=== PATIENT | female | born 1940 | race Caucasian/White ===

== ENCOUNTER → 2017-06-07 | Outpatient (CLI) | payer MEDICARE ==
--- NOTE | 2017-06-07 18:35 | ECHOF ---
Referral Reason:I47.1 supraventricular tacycardia MEASUREMENTS -------- HEIGHT: 152.4 cm WEIGHT: 81.6 kg BP: 166/76 RVIDd: 3.0 cm (< 3.3) IVSd: 1.2 cm (0.6 - 1.1) LVIDd: 4.0 cm (3.9 - 5.3) LVPWd: 1.3 cm (0.6 - 1.1) IVSs: 1.5 cm LVIDs: 2.6 cm LVPWs: 1.6 cm LA Diam: 3.5 cm (2.7 - 3.8) LAESV Index (A-L): 24.86 ml/m Ao Diam: 3.3 cm (2.0 - 3.7) AV Cusp: 2.3 cm (1.5 - 2.6) MV EXCURSION: 14.577 mm (> 18.000) MV EF SLOPE: 29 mm/s (70 - 150) EPSS: 0.5 cm MV E [place]: 0.38 m/s MV DecT: 287 ms MV A [place]: 0.50 m/s MV E/A Ratio: 0.76 AR PHT: 467 ms RAP: 5.00 mmHg RVSP: 26.29 mmHg FINDINGS -------- Sinus rhythm. This was a technically good study. The left ventricular size is normal. There is mild concentric left ventricular hypertrophy. Overall left ventricular systolic function is low-normal with, an EF between 50 - 55 %. The right ventricle is normal in size. Normal LA size by volume 22+/-6 ml/m2. The right atrium is normal in size. There is mild aortic valve sclerosis. There is mild aortic regurgitation. The mitral valve is normal. Mild tricuspid regurgitation present. Right ventricular systolic pressure is normal at < 35 mmHg. Trace/mild (physiologic) pulmonic regurgitation. The aortic root size is normal. IVC Not well visulized. There is no pericardial effusion. CONCLUSIONS -------- 1. Sinus rhythm. 2. The mitral valve is normal. 3. Mild tricuspid regurgitation present. 4. Right ventricular systolic pressure is normal at < 35 mmHg. 5. Trace/mild (physiologic) pulmonic regurgitation. 6. The aortic root size is normal. 7. IVC Not well visulized. 8. There is no pericardial effusion. 9. This was a technically good study. 10. The left ventricular size is normal. 11. There is mild concentric left ventricular hypertrophy. 12. The right ventricle is normal in size. 13. Normal LA size by volume 22+/-6 ml/m2. 14. The right atrium is normal in size. 15. There is mild aortic valve sclerosis. 16. There is mild aortic regurgitation. GOLD MARKER: Darlene Hurtado RDCS
--- NOTE | 2017-06-11 16:54 | HM ---
HOLTER MONITOR REPORT 24-HOUR DCG Patient in her diary had at least 3 episodes when she felt there was some fluttering in her chest. Predominant rhythm appears to be sinus with a heart rate ranging from 64 to 130 beats per minute with an average heart rate of 90 beats per minute. There is evidence of isolated ventricular and supraventricular ectopic beats without any significant runs of SVT, VT or bradyarrhythmia. At that time, patient complained of fluttering sensation in the chest. She was in a normal sinus rhythm with a rate of about 100 beats per minute. Rare PVCs were noted. There was no correlation of any arrhythmia with her perception of fluttering sensation in the chest. This is an unremarkable 24-hour DCG recording. FINAL IMPRESSION: Patient in her diary reported episodes of fluttering in the chest. There was no correlation of any arrhythmia at that time. Prominent rhythm is sinus, with an average heart rate of 90 beats per minute. Isolated PACs and PVCs were noted. No significant tachy- or bradyarrhythmias were detected. MMODL / IJN: [id number] /
== END | disposition home or self-care (01) ==
LOC: RADECHMAIN 10:26
PROVIDERS: ATTEND Family Medicine
DX: I08.2 Rheumatic disorders of both aortic and tricuspid valves (principal)
CPT/HCPCS: 93225; 93226; 93306

== ENCOUNTER 2017-06-12 10:21 | Day surgery (SDC) | payer MEDICARE ==
[2017-06-07 16:32] VITALS: BMI 35.2
[~2017-06-12 10:21] MED LIST: LACTATED RINGERS 1,000 ML IV SCH
[2017-06-12 11:42] VITALS: TEMP 97.4
[2017-06-12] MEDS ORDERED: LIDOCAINE 1% 20 ML VIAL (10MG/ML) FOR IV START INTRADERMA ONE (11:42)
[2017-06-12] MEDS ORDERED: ONDANSETRON 4 MG/2 ML VIAL IVP ONE (11:55)
[2017-06-12] MEDS ORDERED: PROPOFOL 10 MG/ML 20 ML VIAL IV ONE (12:08)
--- NOTE | 2017-06-12 12:35 | P.PCN ---
Date of Procedure: 06/12/17 Procedure(s) Performed: BRIEF HISTORY: Patient is a 77-year-old pleasant white female, scheduled for an elective colonoscopy as a part of evaluation of intermittent rectal bleeding and change in bowel habits. PROCEDURE PERFORMED: Colonoscopy. PREOPERATIVE DIAGNOSIS: Intermittent rectal bleeding and change in bowel habits. IV sedation per Anesthesia. PROCEDURE: After informed consent was obtained, the patient, was brought into the endoscopy unit. IV sedation was administered by Anesthesia under continuous monitoring. Digital rectal examination was normal. Initially the Olympus CF- 160 flexible video colonoscope was then inserted in the rectum, gradually advanced into the cecum without any difficulty. Careful examination was performed as the scope was gradually being withdrawn. Ileocecal valve and the appendiceal orifice were visualized and appeared normal. Prep was excellent. Mucosa of the cecum, ascending colon, transverse colon, descending colon, sigmoid colon, and rectum appeared normal. Moderate left sided diverticulosis seen. Retroflexion was performed in the rectum and small internal hemorrhoids were seen. The patient tolerated the procedure well. IMPRESSION: Normal-appearing colon from rectum to cecum with no evidence of colorectal neoplasia. Small internal hemorrhoids Moderate left-sided diverticulosis. RECOMMENDATIONS: Findings of this examination were discussed with the patient as well her family. She was advised to be a high-fiber diet and take fiber supplements on a regular basis..
[2017-06-12 12:37] VITALS: PULSE 78
[2017-06-12 12:46] VITALS: BP 143/76; RESP 18
== END 2017-06-12 13:08 | disposition home or self-care (01) ==
LOC: ORWHC2ENDO 10:21
PROVIDERS: ATTEND Internal Medicine Gastroenterology
DX: K62.5 Hemorrhage of anus and rectum (principal); K64.8 Other hemorrhoids; K57.30 Diverticulosis of large intestine without perforation or abscess without bleeding; J45.909 Unspecified asthma, uncomplicated; K58.9 Irritable bowel syndrome, unspecified; R19.4 Change in bowel habit; Z88.0 Allergy status to penicillin; Z88.2 Allergy status to sulfonamides; G47.33 Obstructive sleep apnea (adult) (pediatric); Z79.899 Other long term (current) drug therapy
CPT/HCPCS: J2405; J2704; G0121

== ENCOUNTER → 2017-11-06 | Outpatient (CLI) | payer MEDICARE ==
--- NOTE | 2017-11-08 07:15 | MM ---
Reason for exam: screening (asymptomatic). Last mammogram was performed 1 year and 2 months ago. History: Patient is postmenopausal and has history of other cancer at age 70. Family history of breast cancer in maternal cousin at age 50. Took estrogen for 12 years. Physical Findings: A clinical breast exam by your physician is recommended on an annual basis and results should be correlated with mammographic findings. MG 3D Screening Mammo W/Cad Bilateral CC and MLO view(s) were taken. Prior study comparison: September 17, 2016, bilateral MG 3d screening mammo w/cad. September 12, 2015, bilateral MG 3d screening mammo w/cad. There are scattered fibroglandular densities. No significant changes when compared with prior studies. ASSESSMENT: Benign, BI-RAD 2 RECOMMENDATION: Routine screening mammogram of both breasts in 1 year.
== END | disposition home or self-care (01) ==
LOC: RADMAMWWP 13:27
PROVIDERS: ATTEND Family Medicine
DX: Z12.31 Encounter for screening mammogram for malignant neoplasm of breast (principal)
CPT/HCPCS: 77063; 77067

== ENCOUNTER → 2018-05-05 | Outpatient (CLI) | payer MEDICARE ==
--- NOTE | 2018-05-05 17:10 | US ---
EXAMINATION TYPE: US extremity nonvasc complt LT DATE OF EXAM: 05/05/2018 COMPARISON: NONE CLINICAL HISTORY: 78-year-old female R22.9 SWELLING, MASS AND LUMP. Patient states lump area upper ar m around elbow for 2 years. Area is growing per patient and is starting to become uncomfortable if he ld in a certain position (like driving ) for an extended time. Technique: Targeted sonographic examination around the left elbow, distal arm, and proximal forearm a long the patient's site of clinical complaint. FINDINGS: There is asymmetric thickening of the subcutaneous adipose layer along the site of patient's complain t of fullness especially overlying the volar proximal forearm measuring up to 1.5 cm on the left and for comparison purposes, 1.1 cm on the right. No elbow joint effusion or appreciable sonographic abno rmality of the underlying musculature. No discrete mass is identified. IMPRESSION: By ultrasound, only asymmetric thickening of the subcutaneous adipose layer is identified along the s ite of patient's complaint of fullness. No mass or fluid collection is seen. Poorly encapsulated li denia is a differential consideration. If there is continued increase in fullness or the area continu es to be symptomatic, consideration can be given to MRI.
== END | disposition home or self-care (01) ==
LOC: RADUSWWP 12:45
PROVIDERS: ATTEND Family Medicine
DX: R22.32 Localized swelling, mass and lump, left upper limb (principal)

== ENCOUNTER → 2018-07-18 | Outpatient (CLI) | payer MEDICARE ==
--- NOTE | 2018-07-18 09:29 | US ---
EXAMINATION TYPE: US duplex aorta DATE OF EXAM: 07/18/2018 COMPARISON: NONE CLINICAL HISTORY: Z13.9 Encounter for screening. Screening EXAM MEASUREMENTS: Abdominal Aorta: Proximal: 1.8 x 2.1cm Mid: 1.7 x 1.9cm Distal: 1.7 x 1.9cm Bifurcation: RT: 1.2 x 1.0cm LT: 1.2 x 1.0cm Visualized portions show no evidence of AAA at this time. IMPRESSION: The visualized portions of the demonstrate no sonographic evidence of abdominal aortic an eurysm.
== END | disposition home or self-care (01) ==
LOC: RADUSWWP 08:54
PROVIDERS: ATTEND Family Medicine
DX: Z13.9 Encounter for screening, unspecified (principal)
CPT/HCPCS: 93979

== ENCOUNTER → 2018-08-25 | Outpatient (CLI) | payer MEDICARE | END | disposition home or self-care (01) | LOC: LABWHC1 11:10 | PROVIDERS: ATTEND Surgery Vascular Surgery | DX: I82.409 Acute embolism and thrombosis of unspecified deep veins of unspecified lower extremity (principal); Z13.6 Encounter for screening for cardiovascular disorders | CPT/HCPCS: 36415; 83090 ==

== ENCOUNTER → 2018-10-22 | Outpatient (CLI) | payer MEDICARE ==
--- NOTE | 2018-10-22 14:20 | XR ---
Right hip HISTORY: Right hip pain 2 views of the right hip No comparisons Bone mineralization, joint spaces and alignment are maintained. No fracture or dislocation. IMPRESSION: No significant bone abnormality. Consider hip MRI.
== END | disposition home or self-care (01) ==
LOC: RADXRMAIN 12:19
PROVIDERS: ATTEND Midwife
DX: M25.551 Pain in right hip (principal)
CPT/HCPCS: 73502

== ENCOUNTER → 2018-11-28 | Outpatient (CLI) | payer MEDICARE ==
--- NOTE | 2018-12-01 09:33 | MM ---
Reason for exam: screening (asymptomatic). Last mammogram was performed 1 year and 1 month ago. History: Patient is postmenopausal and has history of other cancer at age 70. Family history of breast cancer in maternal cousin at age 50 and breast cancer in cousin at age 55. Took estrogen for 12 years. Physical Findings: A clinical breast exam by your physician is recommended on an annual basis and results should be correlated with mammographic findings. MG 3D Screening Mammo W/Cad Bilateral CC and MLO view(s) were taken. Prior study comparison: November 06, 2017, bilateral MG 3d screening mammo w/cad. September 17, 2016, bilateral MG 3d screening mammo w/cad. There are scattered fibroglandular densities. Benign appearing bilateral calcifications. No suspicious abnormality. No significant changes when compared with prior studies. ASSESSMENT: Benign, BI-RAD 2 RECOMMENDATION: Routine screening mammogram of both breasts in 1 year.
== END ==
LOC: RADMAMWWP 11:00
PROVIDERS: ATTEND Family Medicine
DX: Z12.31 Encounter for screening mammogram for malignant neoplasm of breast (principal)
CPT/HCPCS: 77063; 77067

== ENCOUNTER → 2018-12-02 | Outpatient (CLI) | payer MEDICARE ==
--- NOTE | 2018-12-02 18:10 | BD ---
EXAMINATION TYPE: Axial Bone Density DATE OF EXAM: 12/02/2018 COMPARISON: NONE CLINICAL HISTORY: 78-year-old female postmenopausal screening Height: 59 IN Weight: 172 LBS RISK FACTORS HISTORY OF: Active: YES Diet low in dairy products/other sources of calcium: YES Postmenopausal woman: TOTAL HYST AGE 49 Take estrogen and/or progesterone medications: NOT NOW How long: TOOK AGE 49 - 59 MEDICATIONS: Additional Medications: CALCIUM, SINGULAIR, OMEPRAZOLE, ASPIRIN, INHALER, LEVOCETIRIZINE, LIDRAX, REG YAMILET EXAM MEASUREMENTS: Bone mineral densitometry was performed using the Knovel System. Bone mineral density as measured about the Lumbar spine is: ----- L1-L4(G/cm2): 1.253 T Score Values are as follows: ----- L2: -1.2 ----- L3: 0.7 ----- L4: 2.0 ----- L1-L4: 0.6 Bone mineral density has: Increased 2.0% since study of: 07/23/2016 Bone mineral density about the R hip (g/cm2): 0.887 Bone mineral density about the L hip (g/cm2): 0.882 T Score values are as follows: -----R Neck: -1.1 -----L Neck: -1.1 -----R Total: 0.4 -----L Total: 0.4 Bone mineral density has: Increased 0.2% since study of: 07/23/2016 IMPRESSION: Osteopenia (T Score between -2.5 and -1). There is slightly increased risk of fracture and the patient may be considered for treatment. Re-Screen 2-5 years. NOTE: T-SCORE=SD OF THE YOUNG ADULT MEAN.
== END | disposition home or self-care (01) ==
LOC: RADBDWWP 10:43
PROVIDERS: ATTEND Family Medicine
DX: M85.80 Other specified disorders of bone density and structure, unspecified site (principal); Z78.0 Asymptomatic menopausal state
CPT/HCPCS: 77080

== ENCOUNTER → 2019-06-10 | Outpatient (CLI) | payer MEDICARE | END | disposition home or self-care (01) | LOC: LABWHC1 14:51 | PROVIDERS: ATTEND Surgery Vascular Surgery | DX: Z13.6 Encounter for screening for cardiovascular disorders (principal); E88.89 Other specified metabolic disorders | CPT/HCPCS: 36415; 83090 ==

== ENCOUNTER 2019-09-27 18:41 | Emergency (ER) | payer MEDICARE ==
[2019-09-27] MEDS ORDERED: SODIUM CHLORIDE 0.9% 1,000 ML IV STA (19:02)
[2019-09-27] MEDS ORDERED: SODIUM CHLORIDE 0.9% 500 ML 500 ML IV STA (19:02)
[2019-09-27 19:24] LABS: Basophils % (A) 0 %; Eosinophils # (A) 0.1 k/uL (0-0.7); Eosinophils % (A) 1 %; HCT 40.9 % (34.0-46.0); HGB 13.2 gm/dL (11.4-16.0); Lymphocytes # (A) 2.2 k/uL (1.0-4.8); Lymphocytes % (A) 29 %; MCH 28.8 pg (25.0-35.0); MCHC 32.2 g/dL (31.0-37.0); MCV 89.5 fL (80.0-100.0); Mean Platelet Volume 7.9; Monocytes # (A) 0.5 k/uL (0-1.0); Monocytes % (A) 7 %; Neutrophils # (A) 4.6 k/uL (1.3-7.7); Neutrophils % (A) 59 %; Platelet Count 263 k/uL (150-450); RBC 4.57 m/uL (3.80-5.40); RDW 13.3 % (11.5-15.5); WBC 7.7 k/uL (3.8-10.6)
[2019-09-27 19:28] LABS: ALT 10 U/L (4-34); AST 21 U/L (14-36); African American GFR (CKD) >90 (>60 ml/min/1.73 sqM); Albumin 4.4 g/dL (3.5-5.0); Alkaline Phosphatase 91 U/L (38-126); Anion Gap 8 mmol/L; Blood Urea Nitrogen 12 mg/dL (7-17); Calcium 9.2 mg/dL (8.4-10.2); Carbon Dioxide 28 mmol/L (22-30); Chloride 101 mmol/L (98-107); Creatine Kinase 49 U/L (30-135); Glucose 104 mg/dL (74-99); Non-African American GFR(CKD) 83 (>60 ml/min/1.73 sqM); Potassium 4.2 mmol/L (3.5-5.1); Sodium 137 mmol/L (137-145); Total Bilirubin 0.5 mg/dL (0.2-1.3); Total Protein 6.9 g/dL (6.3-8.2)
[2019-09-27 19:38] LABS: INR 0.9 (<1.2); Partial Thromboplastin Time 22.5 sec (22.0-30.0); Prothrombin Time 9.7 sec (9.0-12.0)
--- NOTE | 2019-09-27 19:40 | ED ---
Chest Pain HPI - General Chief Complaint: Chest Pain Stated Complaint: Chest pain Time Seen by Provider: 09/27/19 19:01 Source: patient, RN notes reviewed, old records reviewed Mode of arrival: ambulatory Limitations: no limitations - History of Present Illness Initial Comments: This is a 79-year-old female DF for evaluation. Patient coming in a symptomatic currently states she has chest pain episode that occurred last night she was able to sleep without difficulty. She was a little bit Alisha for throat event but the chest pain did resolve on its own. Patient supple without significant symptoms and has no symptoms for sure to come to the ER patient not have anemia states that she would like discharge home Complaint: chest pain -: days(s) (yesterday) Onset: during rest Pain Location: substernal Pain Radiation: none Severity: mild Severity scale (1-10): 5 Quality: tightness, heaviness Consistency: now resolved Worsens With: nothing Anginal Symptoms: diaphoresis, dyspnea Treatments Prior to Arrival: none - Related Data Home Medications Medication Instructions Recorded Confirmed Albuterol Sulfate [Proventil Hfa] 1 - 2 puff INHALATION Q6HR PRN 06/07/17 06/07/17 Aspirin [Adult Low Dose Aspirin EC] 81 mg PO DAILY 06/07/17 06/07/17 Budesonide [Pulmicort] 0.5 mg INHALATION BID 06/07/17 06/07/17 CLIDINIUM-chlordiazePOXIDE [Librax] 1 - 2 each PO DIRECTED PRN 06/07/17 06/12/17 Calcium Carbonate [Calcium] 600 mg PO BID 06/07/17 06/07/17 Dicyclomine [Bentyl] 10 mg PO BID PRN 06/07/17 06/12/17 Fiber 2 tab PO BID 06/07/17 06/07/17 L.acidoph,Paracasei, B.lactis 1 each PO DAILY 06/07/17 06/07/17 [Probiotic] Levocetirizine Dihydrochloride 5 mg PO HS 06/07/17 06/07/17 Montelukast [Singulair] 10 mg PO HS 06/07/17 06/07/17 Multivitamin [Multivitamins Adult 1 each PO DAILY 06/07/17 06/07/17 Gummies] Omeprazole [PriLOSEC] 40 mg PO DAILY 06/07/17 06/07/17 Vitamin C/Biotin [Hair, Skin and 1 tab PO DAILY 06/07/17 06/07/17 Nails] Allergies Allergy/AdvReac Type Severity Reaction Status Date / Time ibuprofen [From Motrin] Allergy Unknown Abdominal Verified 09/27/19 18:55 Pain metoprolol Allergy Unknown Hallucinati Verified 09/27/19 18:55 ons Penicillins Allergy Unknown Rash/Hives Verified 09/27/19 18:55 Sulfa (Sulfonamide Allergy Unknown Rash/Hives Verified 09/27/19 18:55 Antibiotics) nebivolol [From Bystolic] AdvReac Unknown Hallucinati Verified 09/27/19 18:55 ons Review of Systems ROS Statement: Those systems with pertinent positive or pertinent negative responses have been documented in the HPI. ROS Other: All systems not noted in ROS Statement are negative. EKG Findings - EKG Comments: EKG Findings:: EKG shows NSR of 82 IA 160 QRS 154 QTc 479 EKG does show significant left bundle-branch block pattern this is significantly changed from EKG most recently a few at this hospital being 6 years ago Past Medical History Past Medical History: Asthma, Hypertension Additional Past Medical History / Comment(s): IBS History of Any Multi-Drug Resistant Organisms: None Reported Past Surgical History: Appendectomy, Cholecystectomy, Heart Catheterization, Hysterectomy Smoking Status: Former smoker Past Alcohol Use History: Daily Past Drug Use History: None Reported General Exam Limitations: no limitations General appearance: alert, in no apparent distress Head exam: Present: atraumatic, normocephalic, normal inspection Eye exam: Present: normal appearance, PERRL, EOMI. Absent: scleral icterus, conjunctival injection, periorbital swelling ENT exam: Present: normal exam, mucous membranes moist Neck exam: Present: normal inspection. Absent: tenderness, meningismus, lymphadenopathy Respiratory exam: Present: normal lung sounds bilaterally. Absent: respiratory distress, wheezes, rales, rhonchi, stridor Cardiovascular Exam: Present: regular rate, normal rhythm, normal heart sounds. Absent: systolic murmur, diastolic murmur, rubs, gallop, clicks GI/Abdominal exam: Present: soft, normal bowel sounds. Absent: distended, tenderness, guarding, rebound, rigid Extremities exam: Present: normal inspection, full ROM, normal capillary refill. Absent: tenderness, pedal edema, joint swelling, calf tenderness Back exam: Present: normal inspection Neurological exam: Present: alert, oriented X3, CN II-XII intact Psychiatric exam: Present: normal affect, normal mood Skin exam: Present: warm, dry, intact, normal color. Absent: rash Course Vital Signs 09/27/19 09/27/19 09/27/19 18:50 19:13 21:11 Temperature 98.1 F Pulse Rate 83 82 Pulse Rate [ 83 Director Ehs ] Respiratory 20 18 Rate Blood Pressure 171/88 168/82 O2 Sat by Pulse 98 98 Oximetry - Reevaluation(s) Reevaluation #1: 09/27/19 21:27 reviewed old EKGs from 7 years ago Reevaluation #2: 09/27/19 21:27 Patient has no chest pain or any symptoms throughout ER stay effusing inpatient admission Chest Pain MDM - MDM 79 female here for evaluation of the chest liquor last night did tell her family about presents to ER today. Reportedly is not significantly elevated, patient is awake alert without complaints of chest pain or shortness of breath patient as needed for discharge home encouraged to return if symptoms return is agreeable for. Patient will start taking aspirin daily Critical Care Time Critical Care Time: Yes Total Critical Care Time: 31 Disposition Clinical Impression: Chest pain Disposition: HOME SELF-CARE Condition: Fair Instructions (If sedation given, give patient instructions): Chest Pain (ED) Is patient prescribed a controlled substance at d/c from ED?: No Referrals: Ko Matthews MD [Primary Care Provider] - 1-2 days
--- NOTE | 2019-09-27 19:42 | XR ---
EXAMINATION TYPE: XR chest 2V DATE OF EXAM: 09/27/2019 COMPARISON: 09/17/2013 HISTORY: Chest pain TECHNIQUE: 2 views FINDINGS: Heart is normal. Lungs are clear. Costophrenic angles are clear. There are no hilar masses. Bony thorax is intact. IMPRESSION: No active cardiopulmonary disease. Normal heart. No adverse change. There is improved ins piration compared to old exam
[2019-09-27 19:52] LABS: Creatine Kinase MB 1.1 ng/mL (0.0-2.4)
[2019-09-27 20:07] LABS: Troponin I 0.045 ng/mL (0.000-0.034)
[2019-09-27] MEDS ORDERED: ASPIRIN 81 MG PO STA (21:27)
[2019-09-27 21:46] VITALS: BP 158/82; PULSE 99; RESP 16; TEMP 98.5
== END 2019-09-27 21:52 | disposition home or self-care (01) ==
LOC: EC 18:41
DX: R07.89 Other chest pain (principal); R61 Generalized hyperhidrosis; R06.00 Dyspnea, unspecified; J45.909 Unspecified asthma, uncomplicated; I10 Essential (primary) hypertension; K58.9 Irritable bowel syndrome, unspecified; Z87.891 Personal history of nicotine dependence; Z88.0 Allergy status to penicillin; Z88.2 Allergy status to sulfonamides; Z88.6 Allergy status to analgesic agent; Z88.8 Allergy status to other drugs, medicaments and biological substances; Z79.51 Long term (current) use of inhaled steroids; Z79.82 Long term (current) use of aspirin; Z79.899 Other long term (current) drug therapy; Z95.818 Presence of other cardiac implants and grafts
CPT/HCPCS: 36415; 71046; 80053; 82550; 82553; 83735; 83880; 84484; 85025; 85610; 85730; 93005; 96360; 96361; 99291

== ENCOUNTER → 2019-10-23 | Outpatient (CLI) | payer MEDICARE ==
[2019-10-23 19:34] LABS: African American GFR (CKD) 80.7 (60.0-200.0); Anion Gap 7.6 mmol/L (4.00-12.00); Calcium 9.4 mg/dL (8.7-10.3); Carbon Dioxide 27.4 mmol/L (21.6-31.8); Non-African American GFR(CKD) 69.6 (60.0-200.0); Potassium 5.6 mmol/L (3.5-5.5)
== END | disposition home or self-care (01) ==
LOC: LABWHC1 13:00
PROVIDERS: ATTEND Internal Medicine Cardiovascular Disease
DX: I10 Essential (primary) hypertension (principal)
CPT/HCPCS: 36415; 80048

== ENCOUNTER → 2020-06-07 | Outpatient (CLI) | payer MEDICARE ==
[2020-06-08 01:54] LABS: African American GFR (CKD) 94.2 (60.0-200.0); Anion Gap 8.6 mmol/L (4.00-12.00); BUN/Creat Ratio 15.71 Ratio (12.00-20.00); Calcium 8.6 mg/dL (8.7-10.3); Carbon Dioxide 24.4 mmol/L (21.6-31.8); Magnesium 1.8 mg/dL (1.5-2.4); Non-African American GFR(CKD) 81.3 (60.0-200.0); Potassium 4.9 mmol/L (3.5-5.5)
== END | disposition home or self-care (01) ==
LOC: LABWHC1 15:55
PROVIDERS: ATTEND Physician Assistant
DX: I50.9 Heart failure, unspecified (principal)
CPT/HCPCS: 36415; 80048; 83735

== ENCOUNTER → 2020-07-07 | Outpatient (CLI) | payer MEDICARE | END | disposition home or self-care (01) | LOC: LABWHC1 12:01 | PROVIDERS: ATTEND Nurse Practitioner Family | DX: Z20.828 Contact with and (suspected) exposure to other viral communicable diseases (principal) | CPT/HCPCS: U0003; C9803 ==

== ENCOUNTER → 2020-08-29 | Outpatient (CLI) | payer MEDICARE ==
[2020-08-30 00:16] LABS: African American GFR (CKD) 80.1 (60.0-200.0); Anion Gap 7.4 mmol/L (4.00-12.00); BUN/Creat Ratio 13.75 Ratio (12.00-20.00); Calcium 9.3 mg/dL (8.7-10.3); Carbon Dioxide 26.6 mmol/L (21.6-31.8); Non-African American GFR(CKD) 69.1 (60.0-200.0); Potassium 5.6 mmol/L (3.5-5.5)
== END | disposition home or self-care (01) ==
LOC: LABWHC1 12:10
PROVIDERS: ATTEND Nurse Practitioner Adult Health
DX: I10 Essential (primary) hypertension (principal); E87.1 Hypo-osmolality and hyponatremia
CPT/HCPCS: 36415; 80048

== ENCOUNTER → 2020-11-11 | Outpatient (CLI) | payer MEDICARE ==
[2020-11-12 00:14] LABS: Anion Gap 9.6 mmol/L (4.00-12.00); Calcium 8.6 mg/dL (8.7-10.3); Carbon Dioxide 26.4 mmol/L (21.6-31.8); Potassium 4.3 mmol/L (3.5-5.5)
[2020-11-12 01:03] LABS: African American GFR (CKD) 61.2 (60.0-200.0); Non-African American GFR(CKD) 52.8 (60.0-200.0)
== END | disposition home or self-care (01) ==
LOC: LABWHC1 10:36
PROVIDERS: ATTEND Nurse Practitioner Adult Health
DX: I10 Essential (primary) hypertension (principal)
CPT/HCPCS: 36415; 80048

== ENCOUNTER → 2021-04-26 | Outpatient (CLI) | payer MEDICARE ==
--- NOTE | 2021-04-26 17:10 | CONS ---
CONSULTATION ADDENDUM: MEDICATIONS: Lasix 40 mg once a day, Imdur 30 mg once a day and Entresto 24 mg-26 mg twice a day, carvedilol 3.125 mg twice a day, aspirin 81 mg once a day, nitroglycerin 0.4 mg as needed for chest pain, omeprazole 40 mg once a day, metoclopramide 5 mg once a day, dicyclomine 3 times a day, 5 mg once a day. Montelukast 10 mg once a day, albuterol inhaler, budesonide, diclofenac twice a day, latanoprost drops 1 drop to each eye once a day. MMJERRELLL / IJN: [id number] /
--- NOTE | 2021-04-27 09:19 | CONS ---
CONSULTATION DATE OF SERVICE: 04/26/2021. 81-year-old lady has been evaluated in Sleep Center for obstructive sleep apnea- hypopnea syndrome. HISTORY OF PRESENT ILLNESS/SLEEP WAKE EVALUATION: Patient has been diagnosed with obstructive sleep apnea 12 years ago in [place]. Since that time, she is on treatment with CPAP every night for the whole night. Presently her CPAP unit is old. It is about again 12 years old and noisy. Patient snores with the CPAP and has episodes of stopped breathing during sleep. Wakes up from sleep 4 times with up to 3 episodes of nocturia. She increased weight for the last 2 years. SLEEP SCHEDULE: Her sleep schedule from 11 p.m. to 7-8 a.m. FALLING ASLEEP: Sometimes she has problems with falling asleep. He has a TV set in bedroom. DURING SLEEP: She usually sleeps on the side position. No history of hypnagogic hallucinations, sleep paralysis or cataplexy. DURING THE DAY/SLEEP WAKE EVALUATION: During the day, patient usually does not take any naps. [place] Sleepiness Scale is 4. PAST MEDICAL HISTORY: Positive for asthma, heart problems, hypertensions, CHF, acid reflux. PAST SURGICAL HISTORY: Appendectomy, hysterectomy, hernia repair, cholecystectomy, venous surgery for the legs. REVIEW OF SYSTEMS: Multiple awakenings from sleep even while using her CPAP equipment. SOCIAL HISTORY: Negative for smoking at the present time. Quit at age of 49. Alcohol consumption occasional wine. FAMILY HISTORY: Cancer, anemia and during the sleep. PHYSICAL EXAMINATION: GENERAL: lady without distress. BP 108/63, HR 61, RR 16, height 4 feet 11 and a half inches. Weight 178.4, temperature 96.2, oxygen saturation at room air 99%. Oropharynx: Extremely low position of soft palate. Mallampati 4. NECK 14-1/2 inches in circumference. Neck: Supple, no JVD. Thyroid is not palpable. LUNGS: Clear to percussion and to auscultation. Good air exchange. No wheezing or rhonchi. HEART: S1, S2 regular. No murmurs, gallops, or rubs. ABDOMEN: Obese. Soft and nontender. Bowel sounds are present. No organomegaly appreciated. EXTREMITIES: 1+ ankle edema. CARD SETTER: Awake, alert, and oriented X3. Cranial nerves 2 to 7 intact. There is no fasciculation or atrophy. noted. No focal deficits observed. IMPRESSION: 1. Obstructive sleep apnea-hypopnea syndrome for about 12 years. We do not have results of her diagnostic polysomnogram. The patient is using CPAP equipment but snores while using the machine and wakes up multiple times while on treatment with CPAP. 2. Obesity, body mass index 35.3. 3. Asthma. 4. Hypertension. 5. History of heart problems. 6. History of congestive heart failure. 7. Acid reflux. 8. Status post hysterectomy. 9. Status post hernia repair. 10.Status post cholecystectomy. 11.Status post appendectomy. 12.Status post surgical treatment of the vein problems of the legs. PLAN: 1. Home sleep apnea test to check patient breathing during sleep. The results of test could be false negative because the patient continues to use her CPAP equipment every night and sometimes when patient has sleep study in the night after using CPAP on previous night it could be false negative. 2. The patient will continue to use CPAP equipment every night for the whole night. 3. Following plan after reviewing results of the home sleep apnea test. 4. Losing weight. 5. No driving if feeling sleepiness. 6. All necessary prescription for CPAP supplies. Thank you very much for referring this patient for consultation. Sincerely, Dayne Stoddard MD, PhD, FAASM Diplomat of [place] [employer] Sleep Medicine Board of [place] [employer] Grades 9 Through 12 Teacher of [place] [facility] [place] MEG / NEDA: [id number] / MTDD
== END | disposition home or self-care (01) ==
LOC: SLEEP 13:30
PROVIDERS: ATTEND Internal Medicine
DX: G47.33 Obstructive sleep apnea (adult) (pediatric) (principal); E66.9 Obesity, unspecified; J45.909 Unspecified asthma, uncomplicated; I10 Essential (primary) hypertension; Z86.79 Personal history of other diseases of the circulatory system; Z98.890 Other specified postprocedural states; Z90.49 Acquired absence of other specified parts of digestive tract; Z90.711 Acquired absence of uterus with remaining cervical stump; Z68.35 Body mass index [BMI] 35.0-35.9, adult
CPT/HCPCS: 99211

== ENCOUNTER → 2021-06-07 | Outpatient (CLI) | payer MEDICARE ==
[2021-06-08 02:28] LABS: African American GFR (CKD) 79.6 (60.0-200.0); Anion Gap 10.9 mmol/L (4.00-12.00); BUN/Creat Ratio 18.75 Ratio (12.00-20.00); Calcium 9.1 mg/dL (8.7-10.3); Carbon Dioxide 26.1 mmol/L (21.6-31.8); Non-African American GFR(CKD) 68.7 (60.0-200.0); Potassium 5.1 mmol/L (3.5-5.5)
== END | disposition home or self-care (01) ==
LOC: LABWHC1 11:24
PROVIDERS: ATTEND Internal Medicine Clinical Cardiac Electrophysiology
DX: I50.9 Heart failure, unspecified (principal); I43 Cardiomyopathy in diseases classified elsewhere
CPT/HCPCS: 36415; 80048

== ENCOUNTER → 2021-08-10 | Outpatient (CLI) | payer MEDICARE ==
--- NOTE | 2021-08-10 15:06 | SFUN ---
SLEEP CENTER FOLLOW UP NOTE DATE OF SERVICE: 08/10/2021 81-year-old lady has been followed in Sleep Center for treatment of obstructive sleep apnea-hypopnea syndrome. Recently, the patient had home sleep apnea test which showed that she has mild obstructive sleep apnea-hypopnea syndrome and I discussed results of the sleep study with patient in detail. The patient was started on auto PAP and today is her first visit after she was treated with this equipment. She feels that she possibly sleeps better with the CPAP. [place] Sleepiness Scale today is 4 which is normal. I checked her CPAP unit. Pressure is in the range between 5 and 15, average pressure 12.2. Usage is every night and 07/29 nights for more than 4 hours. Leak is 20 L/minutes which is borderline. Apnea-hypopnea index increased to 10.2. I reviewed results of the home sleep apnea test and showed really mild obstructive sleep apnea. Apnea/hypopnea index only 5.1, but oxygen level was for long time below or normal. Mostly it was hypopneas which usually does not require high pressure for treatment. CURRENT MEDICATIONS: Carvedilol 3.125 mg twice a day, aspirin 81 mg once a day, omeprazole 40 mg once a day, metoclopramide 5 mg once a day, montelukast 10 mg once a day, albuterol inhaler, budesonide, diclofenac twice a day, latanoprost drops 1 drop to each eye, Imdur 30 mg once a day, Lasix up to 40 mg once a day. PHYSICAL EXAMINATION: GENERAL: Patient in no distress. BP 104/60, HR 60, RR 15, weight 180.4, temperature 96.4, oxygen saturation at room air 97%. Oropharynx: Extremely low position of soft palate, Mallampati 4. NECK: Supple, no JVD. Thyroid is not palpable. LUNGS: Clear to percussion and to auscultation. Good air exchange. No wheezing or rhonchi. HEART: S1, S2 regular. No murmurs, gallops, or rubs. ABDOMEN: Soft and nontender. Bowel sounds are present. No organomegaly appreciated. EXTREMITIES: 1+ ankle edema. METAL TRADES INSTRUCTOR: Awake, alert, and oriented X3. Cranial nerves 2 to 7 intact. There is no fasciculation or atrophy. noted. No focal deficits observed. IMPRESSION: History of obstructive sleep apnea for many years, presently home sleep apnea test done after many years of using CPAP and indicated low only mild obstructive sleep apnea, but that could be false-negative results because patient used her CPAP equipment for the very long period of time. The patient demonstrated good compliance with treatment on the CPAP, benefitting from treatment. PLAN: 1. Patient will continue to use PAP equipment every night for the whole night. 2. Sleep hygiene with regular time in bed for at least 7-1/2 to 8 hours. 3. Precautions related to driving. No driving if feeling sleepiness. 4. I will maintain all necessary prescription for PAP supplies including mask, tube, filters. 5. Watching weight. 6. Follow-up visit in 1 months or earlier if patient has any problems. Because apnea- hypopnea index was increased, I changed the pressure in the machine. Thank you very much for allowing me to participate in management of your patient. Sincerely, Dayne Stoddard MD, PhD, FAASM Diplomat of [place] [employer] Sleep Medicine Board of [place] [employer] [facility] [facility] [place] MMODL / RICHELLEN: [id number] /
== END | disposition home or self-care (01) ==
LOC: SLEEP 13:19
PROVIDERS: ATTEND Internal Medicine
DX: G47.33 Obstructive sleep apnea (adult) (pediatric) (principal)

== ENCOUNTER 2021-09-19 18:17 | Inpatient (IN) | payer MEDICARE ==
[2021-09-19] MEDS ORDERED: SODIUM CHLORIDE 0.9% 1,000 ML IV STA (18:36)
--- NOTE | 2021-09-19 18:41 | ED ---
General Adult HPI - General Chief complaint: Altered Mental Status Stated complaint: altered mental status Time Seen by Provider: 09/19/21 18:21 Source: patient, EMS, RN notes reviewed Mode of arrival: EMS Limitations: altered mental status - History of Present Illness Initial comments: Patient is a pleasant 81-year-old female presenting to the emergency department with concerns for change in mental status. Patient states she feels fine and has no complaints. EMS reported that family felt that patient had some mild changes in mental status. Patient reportedly was oriented 4 normally however now only 3. Patient denies any weakness or confusion. Patient recently was diagnosed with urinary tract infection and placed on antibiotics. - Related Data Home Medications Medication Instructions Recorded Confirmed Levocetirizine Dihydrochloride 5 mg PO HS 06/07/17 09/19/21 Montelukast [Singulair] 10 mg PO HS 06/07/17 09/19/21 Omeprazole [PriLOSEC] 40 mg PO DAILY 06/07/17 09/19/21 Aspirin EC [Ecotrin Low Dose] 81 mg PO DAILY 10/10/19 09/19/21 Budesonide [Pulmicort] 0.5 mg INHALATION RT-BID 10/10/19 09/19/21 Diclofenac Sodium Gel [Voltaren 1 applic TOPICAL BID PRN 10/10/19 09/19/21 Gel] Latanoprost [Xalatan 0.005%] 1 drop BOTH EYES HS 10/10/19 09/19/21 Albuterol Inhaler [Ventolin Hfa 2 puff INHALATION RT-QID PRN 09/19/21 09/19/21 Inhaler] Carvedilol [Coreg] 6.25 mg PO BID 09/19/21 09/19/21 Ciprofloxacin HCl [Cipro] 250 mg PO BID 09/19/21 09/19/21 Dicyclomine [Bentyl] 20 mg PO TID-W/MEALS PRN 09/19/21 09/19/21 Furosemide [Lasix] 40 mg PO DAILY 09/19/21 09/19/21 HYDROcodone/APAP 5-325MG [[place] 1 tab PO BID PRN 09/19/21 09/19/21 5-325] Isosorbide Mononitrate ER [Imdur] 30 mg PO DAILY 09/19/21 09/19/21 Metoclopramide [Reglan] 5 mg PO QID PRN 09/19/21 09/19/21 Phenazopyridine HCl [Uristat Ultra] 99.5 - 199 mg PO TID PRN 09/19/21 09/19/21 Sacubitril/Valsartan [Entresto 24 1 tab PO BID 09/19/21 09/19/21 mg-26 mg Tablet] Previous Rx's Medication Instructions Recorded Nitroglycerin Sl Tabs [Nitrostat] 0.4 mg SUBLINGUAL Q5M PRN #25 tab 10/14/19 Allergies Allergy/AdvReac Type Severity Reaction Status Date / Time ibuprofen [From Motrin] Allergy Unknown Abdominal Verified 09/19/21 20:08 Pain metoprolol Allergy Unknown Hallucinati Verified 09/19/21 20:08 ons Penicillins Allergy Unknown Rash/Hives Verified 09/19/21 20:08 Sulfa (Sulfonamide Allergy Unknown Rash/Hives Verified 09/19/21 20:08 Antibiotics) midazolam [From Versed] Allergy Nausea & Verified 09/19/21 20:08 Vomiting nebivolol [From Bystolic] AdvReac Unknown Hallucinati Verified 09/19/21 20:08 ons fentanyl AdvReac Nausea & Verified 09/19/21 20:08 Vomiting morphine AdvReac Nausea & Verified 09/19/21 20:08 Vomiting Review of Systems ROS Statement: Those systems with pertinent positive or pertinent negative responses have been documented in the HPI. ROS Other: All systems not noted in ROS Statement are negative. Constitutional: Denies: fever Eyes: Denies: eye pain ENT: Denies: ear pain Respiratory: Denies: cough Cardiovascular: Denies: chest pain Endocrine: Denies: fatigue Gastrointestinal: Denies: abdominal pain Genitourinary: Denies: dysuria Musculoskeletal: Denies: back pain Skin: Denies: rash Neurological: Reports: as per HPI. Denies: weakness Past Medical History Past Medical History: Atrial Fibrillation, Asthma, Hypertension Additional Past Medical History / Comment(s): IBS History of Any Multi-Drug Resistant Organisms: None Reported Past Surgical History: Appendectomy, Cholecystectomy, Heart Catheterization, Hernia Repair, Hysterectomy, Tonsillectomy Additional Past Surgical History / Comment(s): varicose vein stripping Past Psychological History: No Psychological Hx Reported Past Alcohol Use History: Daily, Occasional Past Drug Use History: None Reported General Exam Limitations: altered mental status General appearance: alert, in no apparent distress Head exam: Present: normocephalic Eye exam: Present: normal appearance, PERRL, EOMI. Absent: nystagmus ENT exam: Present: normal oropharynx Neck exam: Present: normal inspection. Absent: tenderness, meningismus Respiratory exam: Present: normal lung sounds bilaterally Cardiovascular Exam: Present: regular rate, normal rhythm GI/Abdominal exam: Present: soft. Absent: tenderness Extremities exam: Present: normal inspection. Absent: pedal edema, calf tenderness Neurological exam: Present: alert, CN II-XII intact. Absent: motor sensory deficit Expanded Neurological exam: Present: protecting the airway Patient oriented to: Present: person, place. Absent: time (Patient states the year is 1920.) Speech: Present: fluid speech Cranial nerves: EOM's Intact: Normal Motor strength exam: RUE: 5, LUE: 5, RLE: 5, LLE: 5 Eye Response: (4) open spontaneously Motor Response: (6) obeys commands Verbal Response: (4) confused conversation Psychiatric exam: Present: normal affect, normal mood Skin exam: Present: normal color Course Vital Signs 09/19/21 18:19 Pulse Rate 87 Respiratory 18 Rate Blood Pressure 116/66 O2 Sat by Pulse 90 L Oximetry EKG Findings - EKG Comments: EKG Findings:: Normal sinus rhythm rate 84. IL 154. QRS 160. QT 388. QTC 4. Left axis. Left bundle branch block. Nonspecific ST-T. Medical Decision Making - Medical Decision Making Patient reevaluated and resting comfortably in bed. Patient and family updated on results and plan. Family states patient did receive an injection for her back recently secondary to disc problems. She states patient was mildly confused yesterday, more so today. Patient at this time believes that I was at her house earlier today. Case was discussed with practitioner Sophie, who will admit covering for Dr. Jack, who admits for Dr. Matthews. - Lab Data Result diagrams: 09/19/21 18:44 09/19/21 18:44 Lab Results 09/19/21 09/19/21 09/19/21 Range/Units 18:44 18:44 18:44 WBC 16.2 H (3.8-10.6) k/uL RBC 4.30 (3.80-5.40) m/uL Hgb 12.8 (11.4-16.0) gm/dL Hct 38.4 (34.0-46.0) % MCV 89.2 (80.0-100.0) fL MCH 29.7 (25.0-35.0) pg MCHC 33.3 (31.0-37.0) g/dL RDW 13.0 (11.5-15.5) % Plt Count 238 (150-450) k/uL MPV 8.4 Neutrophils % 86 % Lymphocytes % 7 % Monocytes % 5 % Eosinophils % 1 % Basophils % 0 % Neutrophils # 13.9 H (1.3-7.7) k/uL Lymphocytes # 1.1 (1.0-4.8) k/uL Monocytes # 0.9 (0-1.0) k/uL Eosinophils # 0.1 (0-0.7) k/uL Basophils # 0.0 (0-0.2) k/uL PT 9.8 (9.0-12.0) sec INR 0.9 (<1.2) APTT 22.2 (22.0-30.0) sec Sodium 131 L (137-145) mmol/L Potassium 3.5 (3.5-5.1) mmol/L Chloride 97 L (98-107) mmol/L Carbon Dioxide 25 (22-30) mmol/L Anion Gap 9 mmol/L BUN 19 H (7-17) mg/dL Creatinine 0.98 (0.52-1.04) mg/dL Est GFR (CKD-EPI)AfAm 62 (>60 ml/min/1.73 sqM) Est GFR (CKD-EPI)NonAf 54 (>60 ml/min/1.73 sqM) Glucose 122 H (74-99) mg/dL Calcium 8.6 (8.4-10.2) mg/dL Total Bilirubin 1.1 (0.2-1.3) mg/dL AST 19 (14-36) U/L ALT 14 (4-34) U/L Alkaline Phosphatase 60 (38-126) U/L Troponin I (0.000-0.034) ng/mL Total Protein 6.1 L (6.3-8.2) g/dL Albumin 3.5 (3.5-5.0) g/dL 09/19/21 Range/Units 18:44 WBC (3.8-10.6) k/uL RBC (3.80-5.40) m/uL Hgb (11.4-16.0) gm/dL Hct (34.0-46.0) % MCV (80.0-100.0) fL MCH (25.0-35.0) pg MCHC (31.0-37.0) g/dL RDW (11.5-15.5) % Plt Count (150-450) k/uL MPV Neutrophils % % Lymphocytes % % Monocytes % % Eosinophils % % Basophils % % Neutrophils # (1.3-7.7) k/uL Lymphocytes # (1.0-4.8) k/uL Monocytes # (0-1.0) k/uL Eosinophils # (0-0.7) k/uL Basophils # (0-0.2) k/uL PT (9.0-12.0) sec INR (<1.2) APTT (22.0-30.0) sec Sodium (137-145) mmol/L Potassium (3.5-5.1) mmol/L Chloride (98-107) mmol/L Carbon Dioxide (22-30) mmol/L Anion Gap mmol/L BUN (7-17) mg/dL Creatinine (0.52-1.04) mg/dL Est GFR (CKD-EPI)AfAm (>60 ml/min/1.73 sqM) Est GFR (CKD-EPI)NonAf (>60 ml/min/1.73 sqM) Glucose (74-99) mg/dL Calcium (8.4-10.2) mg/dL Total Bilirubin (0.2-1.3) mg/dL AST (14-36) U/L ALT (4-34) U/L Alkaline Phosphatase (38-126) U/L Troponin I 0.077 H* (0.000-0.034) ng/mL Total Protein (6.3-8.2) g/dL Albumin (3.5-5.0) g/dL - Radiology Data Radiology results: report reviewed (CT brain shows atrophy. No acute intercranial abnormality.), image reviewed (Chest x-ray shows atelectasis) Disposition Clinical Impression: Altered mental status Disposition: ADMITTED IP TO THIS HOSP Is patient prescribed a controlled substance at d/c from ED?: No Referrals: Ko Matthews MD [Primary Care Provider] - 1-2 days Decision Time: 20:48
[2021-09-19 18:48] LABS: Basophils % (A) 0 %; Eosinophils # (A) 0.1 k/uL (0-0.7); Eosinophils % (A) 1 %; HCT 38.4 % (34.0-46.0); HGB 12.8 gm/dL (11.4-16.0); Lymphocytes # (A) 1.1 k/uL (1.0-4.8); Lymphocytes % (A) 7 %; MCH 29.7 pg (25.0-35.0); MCHC 33.3 g/dL (31.0-37.0); MCV 89.2 fL (80.0-100.0); Mean Platelet Volume 8.4; Monocytes # (A) 0.9 k/uL (0-1.0); Monocytes % (A) 5 %; Neutrophils # (A) 13.9 k/uL (1.3-7.7); Neutrophils % (A) 86 %; Platelet Count 238 k/uL (150-450); WBC 16.2 k/uL (3.8-10.6)
[2021-09-19 18:57] LABS: Albumin 3.5 g/dL (3.5-5.0); Calcium 8.6 mg/dL (8.4-10.2); Potassium 3.5 mmol/L (3.5-5.1); Total Bilirubin 1.1 mg/dL (0.2-1.3); Total Protein 6.1 g/dL (6.3-8.2)
[2021-09-19 19:06] LABS: INR 0.9 (<1.2); Partial Thromboplastin Time 22.2 sec (22.0-30.0); Prothrombin Time 9.8 sec (9.0-12.0)
--- NOTE | 2021-09-19 19:48 | CT ---
EXAMINATION TYPE: CT brain wo con DATE OF EXAM: 09/19/2021 COMPARISON: None HISTORY: Altered mental status. CT DLP: 1060.4 mGycm Automated exposure control for dose reduction was used. Images of the brain obtained without contrast. There is cerebral mild cortical atrophy. There is no mass effect nor midline shift. There is no sign of intracranial hemorrhage. Calvarium is intact. IMPRESSION: Mild cerebral atrophy. No acute intracranial abnormality.
--- NOTE | 2021-09-19 19:49 | XR ---
EXAMINATION TYPE: XR chest 2V DATE OF EXAM: 09/19/2021 COMPARISON: 10/10/2019 HISTORY: Altered mental status TECHNIQUE: FINDINGS: There is no heart failure nor confluent pneumonic infiltrate. Costophrenic angles are clear . There is small linear density left lung base. There are chest leads. Bony thorax is intact. IMPRESSION: Subsegmental atelectasis left lung base appears new compared to old exam. Normal heart.
[2021-09-19] MEDS ORDERED: NALOXONE 0.4 MG/ML 1 ML VIAL IV PRN (20:48)
[2021-09-19] MEDS ORDERED: cefTRIAXone IN SWFI 1,000 MG/10 ML SYRINGE IVP STA (20:48)
[2021-09-19] MEDS ORDERED: ASPIRIN 325 MG TAB PO STA (20:49)
[2021-09-19 21:55] LABS: Appearance,Urine Cloudy (Clear); Bacteria,Urine Rare /hpf; Bilirubin,Urine 1+ (Negative); Blood,Urine Moderate (Negative); Color,Urine Dark Brown; Glucose,Urine (UA) Negative (Negative); Hyaline Casts,Urine 16 /lpf (0-2); Ketones,Urine Negative (Negative); Leukocyte Esterase,Urine Moderate (Negative); Mucus,Urine Rare /hpf; Nitrite,Urine Positive (Negative); PH, Urine 5.5 (5.0-8.0); Protein,Urine 2+ (Negative); RBC,Urine 7 /hpf (0-5); Specific Gravity,Urine 1.017 (1.001-1.035); Squamous Epithelial Cell,Urine <1 /hpf (0-4); WBC,Urine 20 /hpf (0-5)
[2021-09-20] MEDS ORDERED: ASPIRIN 325 MG TAB PO SCH (09:00)
[2021-09-20] MEDS ORDERED: ALBUTEROL NEBULIZED 2.5 MG/3 ML INHALATION PRN (12:44)
[2021-09-20] MEDS ORDERED: METOCLOPRAMIDE 5 MG TAB PO PRN (12:44)
[2021-09-20] MEDS ORDERED: DICLOFENAC SODIUM GEL 100 GM TUBE TOPICAL PRN (12:44)
[2021-09-20] MEDS ORDERED: NITROGLYCERIN SL TABS 0.4 MG TAB SUBLINGUAL PRN (12:44)
[2021-09-20] MEDS: ACETAMINOPHEN TAB 325 MG TAB PO PRN ×2 (13:53→22:00)
[2021-09-20] MEDS: carvediloL 6.25 MG TAB PO SCH (13:54)
[2021-09-20] MEDS: SACUBITRIL/VALSARTAN 24 MG-26 MG TABLET PO SCH ×2 (13:54→22:00)
[2021-09-20] MEDS: FUROSEMIDE 40 MG TAB PO SCH (13:54)
--- NOTE | 2021-09-20 13:59 | P.HPIM ---
History of Present Illness 81-year-old pleasant female was brought in because of altered mental status patient is alert oriented 3 when I evaluated the patient patient the had the history of for a back surgery after which patient was started on [place] and after started [place] patient started having confusion. At that time urine analysis was done which was abnormal and patient was believed to have UTI beget which led to her confusion because of which patient was started on ciprofloxacin.. Patient confusion has gotten worse and patient came to Hospital today. Patient was told that her urinary tract infection is not improving with ciprofloxacin. Patient other medications that can cause confusion including Lomotil, levo cetirizine. Patient presently doesn't have any dysuria doesn't have any fever does have leukocytosis, patient received ciprofloxacin urine is definitely abnormal in ER. Patient is bit hyponatremic patient does have history of congestive heart failure EF of around 20-25% patient has ischemic adenopathy patient is an enterostomal for that patient has mildly elevated troponins were all the patient denied any chest pain. REVIEW OF SYSTEMS: CONSTITUTIONAL: No fever, no malaise, no fatigue. HEENT: No recent visual problems or hearing problems. Denied any sore throat. CARDIOVASCULAR: No chest pain, orthopnea, PND, no palpitations, no syncope. PULMONARY: No shortness of breath, no cough, no hemoptysis. GASTROINTESTINAL: No diarrhea, no nausea, no vomiting, no abdominal pain. NEUROLOGICAL: No headaches, no weakness, no numbness. HEMATOLOGICAL: Denies any bleeding or petechiae. GENITOURINARY: Denies any burning micturition, frequency, or urgency. MUSCULOSKELETAL/RHEUMATOLOGICAL: Denies any joint pain, swelling, or any muscle pain. ENDOCRINE: Denies any polyuria or polydipsia. The rest of the 14-point review of systems is negative. PHYSICAL EXAMINATION: GENERAL: The patient is alert and oriented x3, not in any acute distress. Well developed, well nourished. HEENT: Pupils are round and equally reacting to light. EOMI. No scleral icterus. No conjunctival pallor. Normocephalic, atraumatic. No pharyngeal erythema. No thyromegaly. CARDIOVASCULAR: S1 and S2 present. No murmurs, rubs, or gallops. PULMONARY: Chest is clear to auscultation, no wheezing or crackles. ABDOMEN: Soft, nontender, nondistended, normoactive bowel sounds. No palpable organomegaly. MUSCULOSKELETAL: No joint swelling or deformity. EXTREMITIES: No cyanosis, clubbing, or pedal edema. NEUROLOGICAL: Gross neurological examination did not reveal any focal deficits. Does have generalized weakness SKIN: No rashes. Assessment and plan -Altered mental status toxic encephalopathy and believed mostly because of the medications were particularly [place] because of the temporal association with contribution from other medications including anticholinergics that is cetirizine. These medications will be held patient is already feeling better. Patient will the not be started on antibiotics we'll repeat the CBC tomorrow mo nitor her overnight. Patient probably has asymptomatic bacteriuria. Her confusion has worsened because of for ciprofloxacin. Family as is at bedside which helps with the sundowners. -Hyponatremia probably mild hypervolumia secondary to heart failure we'll obtain a BNP patient will restart back on enterostomal and Lasix -Can start failure chronic systolic dysfunction with mild acute exacerbation -Mild troponin elevation secondary to CHF most probably cardiology will be consulted troponins are not going up. 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 History of Any Multi-Drug Resistant Organisms: None Reported Past Surgical History: Appendectomy, Cholecystectomy, Heart Catheterization, Hernia Repair, Hysterectomy, Tonsillectomy Additional Past Surgical History / Comment(s): varicose vein stripping Past Anesthesia/Blood Transfusion Reactions: Postoperative Nausea & Vomiting (PONV) Past Psychological History: No Psychological Hx Reported Smoking Status: Former smoker Past Alcohol Use History: Daily Additional Past Alcohol Use History / Comment(s): Pt drinks 1-2 glasses of wine daily. Past Drug Use History: None Reported - Past Family History Mother Family Medical History: Congestive Heart Failure (CHF) Father Additional Family Medical History / Comment(s): of aneurysm. Medications and Allergies Home Medications Medication Instructions Recorded Confirmed Type Levocetirizine Dihydrochloride 5 mg PO HS 06/07/17 09/19/21 History Montelukast [Singulair] 10 mg PO HS 06/07/17 09/19/21 History Omeprazole [PriLOSEC] 40 mg PO DAILY 06/07/17 09/19/21 History Aspirin EC [Ecotrin Low Dose] 81 mg PO DAILY 10/10/19 09/19/21 History Budesonide [Pulmicort] 0.5 mg INHALATION RT-BID 10/10/19 09/19/21 History Diclofenac Sodium Gel [Voltaren 1 applic TOPICAL BID PRN 10/10/19 09/19/21 History Gel] Latanoprost [Xalatan 0.005%] 1 drop BOTH EYES HS 10/10/19 09/19/21 History Nitroglycerin Sl Tabs [Nitrostat] 0.4 mg SUBLINGUAL Q5M PRN #25 tab 10/14/19 09/19/21 Rx Albuterol Inhaler [Ventolin Hfa 2 puff INHALATION RT-QID PRN 09/19/21 09/19/21 History Inhaler] Carvedilol [Coreg] 6.25 mg PO BID 09/19/21 09/19/21 History Ciprofloxacin HCl [Cipro] 250 mg PO BID 09/19/21 09/19/21 History Dicyclomine [Bentyl] 20 mg PO TID-W/MEALS PRN 09/19/21 09/19/21 History Furosemide [Lasix] 40 mg PO DAILY 09/19/21 09/19/21 History HYDROcodone/APAP 5-325MG [[place] 1 tab PO BID PRN 09/19/21 09/19/21 History 5-325] Isosorbide Mononitrate ER [Imdur] 30 mg PO DAILY 09/19/21 09/19/21 History Metoclopramide [Reglan] 5 mg PO QID PRN 09/19/21 09/19/21 History Phenazopyridine HCl [Uristat Ultra] 99.5 - 199 mg PO TID PRN 09/19/21 09/19/21 History Sacubitril/Valsartan [Entresto 24 1 tab PO BID 09/19/21 09/19/21 History mg-26 mg Tablet] Allergies Allergy/AdvReac Type Severity Reaction Status Date / Time ibuprofen [From Motrin] Allergy Unknown Abdominal Verified 09/19/21 20:08 Pain metoprolol Allergy Unknown Hallucinati Verified 09/19/21 20:08 ons Penicillins Allergy Unknown Rash/Hives Verified 09/19/21 20:08 Sulfa (Sulfonamide Allergy Unknown Rash/Hives Verified 09/19/21 20:08 Antibiotics) midazolam [From Versed] Allergy Nausea & Verified 09/19/21 20:08 Vomiting nebivolol [From Bystolic] AdvReac Unknown Hallucinati Verified 09/19/21 20:08 ons fentanyl AdvReac Nausea & Verified 09/19/21 20:08 Vomiting morphine AdvReac Nausea & Verified 09/19/21 20:08 Vomiting Physical Exam Vitals: Vital Signs Temp Pulse Pulse Resp BP BP Pulse Ox 09/20/21 11:09 98.9 F 72 18 124/57 94 L 09/20/21 08:00 99.2 F 71 16 109/53 90 L 09/20/21 03:16 99.0 F 76 20 118/58 92 L 09/20/21 01:49 82 09/20/21 00:15 99.3 F 82 20 109/55 91 L 09/19/21 22:16 82 16 116/51 96 09/19/21 22:15 98.9 F 09/19/21 18:19 87 18 116/66 90 L Intake and Output 09/19/21 09/20/21 09/20/21 22:59 06:59 14:59 Intake Total 240 Output Total 300 Balance -300 240 Intake: Oral 240 Output: Urine 300 Straight 300 Other: Voiding Method Toilet # Voids 1 1 Weight 79.832 kg 79.832 kg Results CBC & Chem 7: 09/19/21 18:44 09/19/21 18:44 Labs: Abnormal Lab Results - Last 24 Hours (Table) 09/19/21 09/19/21 09/19/21 Range/Units 18:44 18:44 18:44 WBC 16.2 H (3.8-10.6) k/uL Neutrophils # 13.9 H (1.3-7.7) k/uL Sodium 131 L (137-145) mmol/L Chloride 97 L (98-107) mmol/L BUN 19 H (7-17) mg/dL Glucose 122 H (74-99) mg/dL Troponin I 0.077 H* (0.000-0.034) ng/mL Total Protein 6.1 L (6.3-8.2) g/dL Urine Appearance (Clear) Urine Protein (Negative) Urine Blood (Negative) Urine Nitrite (Negative) Urine Bilirubin (Negative) Ur Leukocyte Esterase (Negative) Urine RBC (0-5) /hpf Urine WBC (0-5) /hpf Urine WBC Clumps (None) /hpf Urine Bacteria (None) /hpf Hyaline Casts (0-2) /lpf Urine Mucus (None) /hpf 09/19/21 09/19/21 09/20/21 Range/Units 21:17 21:37 00:20 WBC (3.8-10.6) k/uL Neutrophils # (1.3-7.7) k/uL Sodium (137-145) mmol/L Chloride (98-107) mmol/L BUN (7-17) mg/dL Glucose (74-99) mg/dL Troponin I 0.080 H* 0.089 H* (0.000-0.034) ng/mL Total Protein (6.3-8.2) g/dL Urine Appearance Cloudy H (Clear) Urine Protein 2+ H (Negative) Urine Blood Moderate H (Negative) Urine Nitrite Positive H (Negative) Urine Bilirubin 1+ H (Negative) Ur Leukocyte Esterase Moderate H (Negative) Urine RBC 7 H (0-5) /hpf Urine WBC 20 H (0-5) /hpf Urine WBC Clumps Rare H (None) /hpf Urine Bacteria Rare H (None) /hpf Hyaline Casts 16 H (0-2) /lpf Urine Mucus Rare H (None) /hpf Microbiology - Last 24 Hours (Table) 09/19/21 21:17 Urine Culture - Preliminary Urine,Voided Thrombosis Risk Factor Assmnt - Choose All That Apply Any of the Below Risk Factors Present?: Yes Each Factor Represents 1 point: Varicose veins Other Risk Factors: Yes Each Risk Factor Represents 3 Points: Age 75 years or older Other congenital or acquired thrombophilia - If yes, enter type in comment: No Thrombosis Risk Factor Assessment Total Risk Factor Score: 4 Thrombosis Risk Factor Assessment Level: Moderate Risk
[2021-09-20] MEDS: BUDESONIDE 0.5 MG/2 ML NEBU INHALATION SCH (21:06)
[2021-09-20] MEDS: MONTELUKAST 10 MG TAB PO SCH (22:00)
[2021-09-20] MEDS: HEPARIN SODIUM,PORCINE/PF 5,000 UNIT/0.5 ML SYRINGE SQ SCH (22:00)
[2021-09-20] MEDS: LATANOPROST 0.005% OPHTH DROPS 2.5 ML BTL BOTH EYES SCH (22:01)
[2021-09-21] MEDS: ACETAMINOPHEN TAB 325 MG TAB PO PRN ×3 (05:21→23:03)
[2021-09-21] MEDS: carvediloL 6.25 MG TAB PO SCH ×2 (06:45→16:52)
[2021-09-21 08:20] LABS: HCT 33.1 % (34.0-46.0); HGB 11.2 gm/dL (11.4-16.0); MCH 30.3 pg (25.0-35.0); MCHC 33.8 g/dL (31.0-37.0); MCV 89.8 fL (80.0-100.0); Mean Platelet Volume 8.6; Platelet Count 222 k/uL (150-450); RBC 3.68 m/uL (3.80-5.40); WBC 14.4 k/uL (3.8-10.6)
[2021-09-21] MEDS: HEPARIN SODIUM,PORCINE/PF 5,000 UNIT/0.5 ML SYRINGE SQ SCH ×2 (08:24→21:37)
[2021-09-21] MEDS: FUROSEMIDE 40 MG TAB PO SCH (08:24)
[2021-09-21] MEDS: SACUBITRIL/VALSARTAN 24 MG-26 MG TABLET PO SCH ×2 (08:24→21:38)
[2021-09-21] MEDS: PANTOPRAZOLE 40 MG TABLET PO SCH (08:24)
[2021-09-21] MEDS: ASPIRIN 81 MG PO SCH (08:24)
[2021-09-21 08:37] LABS: Calcium 8.5 mg/dL (8.4-10.2); Magnesium 1.9 mg/dL (1.6-2.3); Potassium 3.9 mmol/L (3.5-5.1)
[2021-09-21] MEDS ORDERED: ISOSORBIDE MONONITRATE ER 30 MG TAB.ER.24H PO SCH (09:00)
[2021-09-21] MEDS: BUDESONIDE 0.5 MG/2 ML NEBU INHALATION SCH ×2 (10:01→21:53)
--- NOTE | 2021-09-21 10:27 | P.CRDCN ---
History of Present Illness History of present illness: HISTORY OF PRESENTING ILLNESS This is a pleasant 81-year-old female past medical history significant for nonischemic cardiomyopathy, chronic systolic heart failure, hypertension, and left bundle branch block, recent herniated disc 3 weeks ago s/p steroid injections 1 week ago. She follows in the office with Dr. Arthur. We have been asked to see in consultation for elevated troponin. Patient presents to the emergency department with alerted mental status. Family reported that patient ap peared confused. She had a herniated disc 3 weeks ago, she was given a steroid injection about 1 week ago, supposedly patient was recently started on [place] and started to have confusion. At that time, she was also have burning with urination and confusion she diagnosed with a UTI, she started on Ciprofloxacin with no improvement. Her confusion, apparently had progressively gotten worse per family and she was brought to the emergency department for further evaluation. Patient denied any chest pain, shortness of breath, lightheadedness, dizziness, syncope or near syncope. Troponins were drawn in the ER which were 0.07, 0.08, 0.08. DIAGNOSTICS -EKG reveals sinus rhythm, heart rate 84, left bundle branch block, poor R wave progression, no significant ST or T-wave abnormalities. Prior EKG with similar findings -Last Cardiac Catheterization 10/13/2019- normal coronary arteries -Most recent echocardiogram 02/24/2020 revealed an EF of 43%, grade 3 diastolic dysfunction, moderate aortic regurgitation, mild mitral regurgitation, mild tricuspid regurgitation -24 hour holter monitor 09/2019- sinus mechanism HR range 53-95. -Most recent stress test 11/10/2020 Dobutamine- Inconclusive, due to patient not obtaining target heart rate. partially reversible ischemia in the mid anterior wall which was consistent with left bundle branch pattern. medical therapy advised at that time. -Telemetry tracings indicate sinus mechanism HR 60s-70s -Chest xray subsegmental atelectasis left lung base -CT brain with no acute intracranial abnormality Laboratory reviewed, WBC 16.2, hemoglobin 12.8, platelets 238, sodium 131, potassium 3.5, BUN 19, serum creatinine 0.9, proBNP 2140, troponin 0.07, 0.08, 0.08 Current home medications include Imdur 30 mg daily, Lasix 40 mg daily, and dressed to 24 mg to 26 mg twice a day, carvedilol 6.25 mg twice a day, aspirin 81 mg daily. REVIEW OF SYSTEMS At the time of my exam: CONSTITUTIONAL: Denies fever or chills. CARDIOVASCULAR: Denies chest pain, shortness of breath, orthopnea, PND or palpitations. RESPIRATORY: Denies cough. GASTROINTESTINAL: Denies abdominal pain, diarrhea, constipation, nausea or vomiting. MUSCULOSKELETAL: Denies myalgias. NEUROLOGIC: +confusion Denies numbness, tingling, headache or weakness. ENDOCRINE: Denies fatigue, weight change, polydipsia or polyurina. GENITOURINARY: Denies burning, hematuria or urgency with micturation. HEMATOLOGIC: Denies history of anemia or bleeding. PHYSICAL EXAMINATION Blood pressure 124/57, heart rate 72, afebrile, oxygen saturation is greater than 92% on 2 L nasal cannula CONSTITUTIONAL: No apparent distress. HEENT: Head is normocephalic. Pupils are equal, round. Sclerae anicteric. Mucous membranes of the mouth are moist. No JVD. No carotid bruit. CHEST EXAMINATION: Lungs are diminished bilaterally to auscultation. No chest wall tenderness is noted on palpation or with deep breathing. HEART EXAMINATION: Regular rate and rhythm. S1, S2 heard. systolic and diastolic murmur noted. ABDOMEN: Soft, nontender. Positive bowel sounds. EXTREMITIES: 2+ peripheral pulses, no lower extremity edema and no calf tenderness. SKIN: warm, ddry NEUROLOGIC EXAMINATION: Patient is awake, alert and oriented x1-2 ASSESSMENT Elevated troponin, likely due to recent infection, not consistent with acute coronary syndrome. Patient without chest pain or evidence of ischemia on EKG. Urinary tract infection Recent herniated disc s/p injection 1 week ago Altered mental status Hyponatremia Nonischemic cardiomyopathy Chronic systolic heart failure History of hypertension PLAN Obtain 2D echocardiogram and doppler study to assess cardiac structure and function. If echocardiogram with no acute changes, no further workup from cardiology perspetive. Continue all home cardiac medications Follow up with Dr. Arthur outpatient Thank you kindly for this consultation. Nurse Practitioner note has been reviewed, I agree with a documented findings and plan of care. Patient was seen and examined. Past Medical History Past Medical History: Atrial Fibrillation, Asthma, Heart Failure, GERD/Reflux, Hypertension, Sleep Apnea/CPAP/BIPAP Additional Past Medical History / Comment(s): IBS, autoimmune disease (unsure of disease, needed lung biopsy to diagnose and biopsy was not done), uses CPAP at home. History of Any Multi-Drug Resistant Organisms: None Reported Past Surgical History: Appendectomy, Cholecystectomy, Heart Catheterization, Hernia Repair, Hysterectomy, Tonsillectomy Additional Past Surgical History / Comment(s): varicose vein stripping Past Anesthesia/Blood Transfusion Reactions: Postoperative Nausea & Vomiting (PONV) Past Psychological History: No Psychological Hx Reported Smoking Status: Former smoker Past Alcohol Use History: Daily Additional Past Alcohol Use History / Comment(s): Pt drinks 1-2 glasses of wine daily. Past Drug Use History: None Reported - Past Family History Mother Family Medical History: Congestive Heart Failure (CHF) Father Additional Family Medical History / Comment(s): of aneurysm. Medications and Allergies Home Medications Medication Instructions Recorded Confirmed Type Levocetirizine Dihydrochloride 5 mg PO HS 06/07/17 09/19/21 History Montelukast [Singulair] 10 mg PO HS 06/07/17 09/19/21 History Omeprazole [PriLOSEC] 40 mg PO DAILY 06/07/17 09/19/21 History Aspirin EC [Ecotrin Low Dose] 81 mg PO DAILY 10/10/19 09/19/21 History Budesonide [Pulmicort] 0.5 mg INHALATION RT-BID 10/10/19 09/19/21 History Diclofenac Sodium Gel [Voltaren 1 applic TOPICAL BID PRN 10/10/19 09/19/21 History Gel] Latanoprost [Xalatan 0.005%] 1 drop BOTH EYES HS 10/10/19 09/19/21 History Nitroglycerin Sl Tabs [Nitrostat] 0.4 mg SUBLINGUAL Q5M PRN #25 tab 10/14/19 09/19/21 Rx Albuterol Inhaler [Ventolin Hfa 2 puff INHALATION RT-QID PRN 09/19/21 09/19/21 History Inhaler] Carvedilol [Coreg] 6.25 mg PO BID 09/19/21 09/19/21 History Ciprofloxacin HCl [Cipro] 250 mg PO BID 09/19/21 09/19/21 History Dicyclomine [Bentyl] 20 mg PO TID-W/MEALS PRN 09/19/21 09/19/21 History Furosemide [Lasix] 40 mg PO DAILY 09/19/21 09/19/21 History HYDROcodone/APAP 5-325MG [Lena 1 tab PO BID PRN 09/19/21 09/19/21 History 5-325] Isosorbide Mononitrate ER [Imdur] 30 mg PO DAILY 09/19/21 09/19/21 History Metoclopramide [Reglan] 5 mg PO QID PRN 09/19/21 09/19/21 History Phenazopyridine HCl [Uristat Ultra] 99.5 - 199 mg PO TID PRN 09/19/21 09/19/21 History Sacubitril/Valsartan [Entresto 24 1 tab PO BID 09/19/21 09/19/21 History mg-26 mg Tablet] Allergies Allergy/AdvReac Type Severity Reaction Status Date / Time ibuprofen [From Motrin] Allergy Unknown Abdominal Verified 09/19/21 20:08 Pain metoprolol Allergy Unknown Hallucinati Verified 09/19/21 20:08 ons Penicillins Allergy Unknown Rash/Hives Verified 09/19/21 20:08 Sulfa (Sulfonamide Allergy Unknown Rash/Hives Verified 09/19/21 20:08 Antibiotics) midazolam [From Versed] Allergy Nausea & Verified 09/19/21 20:08 Vomiting nebivolol [From Bystolic] AdvReac Unknown Hallucinati Verified 09/19/21 20:08 ons fentanyl AdvReac Nausea & Verified 09/19/21 20:08 Vomiting morphine AdvReac Nausea & Verified 09/19/21 20:08 Vomiting Physical Exam Vitals: Vital Signs Temp Pulse Pulse Resp BP BP Pulse Ox 09/20/21 11:09 98.9 F 72 18 124/57 94 L 09/20/21 08:00 99.2 F 71 16 109/53 90 L 09/20/21 03:16 99.0 F 76 20 118/58 92 L 09/20/21 01:49 82 09/20/21 00:15 99.3 F 82 20 109/55 91 L 09/19/21 22:16 82 16 116/51 96 09/19/21 22:15 98.9 F 09/19/21 18:19 87 18 116/66 90 L Intake and Output 09/19/21 09/20/21 09/20/21 22:59 06:59 14:59 Intake Total 240 Output Total 300 Balance -300 240 Intake: Oral 240 Output: Urine 300 Straight 300 Other: Voiding Method Toilet # Voids 1 1 Weight 79.832 kg 79.832 kg Results 09/21/21 07:24 09/21/21 07:24 Cardiac Enzymes 09/19/21 09/19/21 09/19/21 Range/Units 18:44 18:44 21:37 AST 19 (14-36) U/L Troponin I 0.077 H* 0.080 H* (0.000-0.034) ng/mL 09/20/21 Range/Units 00:20 AST (14-36) U/L Troponin I 0.089 H* (0.000-0.034) ng/mL Coagulation 09/19/21 Range/Units 18:44 PT 9.8 (9.0-12.0) sec APTT 22.2 (22.0-30.0) sec CBC 09/19/21 Range/Units 18:44 WBC 16.2 H (3.8-10.6) k/uL RBC 4.30 (3.80-5.40) m/uL Hgb 12.8 (11.4-16.0) gm/dL Hct 38.4 (34.0-46.0) % Plt Count 238 (150-450) k/uL Comprehensive Metabolic Panel 09/19/21 Range/Units 18:44 Sodium 131 L (137-145) mmol/L Potassium 3.5 (3.5-5.1) mmol/L Chloride 97 L (98-107) mmol/L Carbon Dioxide 25 (22-30) mmol/L BUN 19 H (7-17) mg/dL Creatinine 0.98 (0.52-1.04) mg/dL Glucose 122 H (74-99) mg/dL Calcium 8.6 (8.4-10.2) mg/dL AST 19 (14-36) U/L ALT 14 (4-34) U/L Alkaline Phosphatase 60 (38-126) U/L Total Protein 6.1 L (6.3-8.2) g/dL Albumin 3.5 (3.5-5.0) g/dL Current Medications Generic Name Dose Route Start Last Admin Trade Name Freq PRN Reason Stop Dose Admin Acetaminophen 650 mg 09/19/21 20:48 09/20/21 13:53 Acetaminophen Tab 325 Mg Tab PO 650 mg Q6H PRN Administration Mild Pain or Fever > 100.5 Albuterol Sulfate 2.5 mg 09/20/21 12:44 Albuterol Nebulized 2.5 Mg/3 Ml INHALATION RT-QID PRN Shortness Of Breath Aspirin 81 mg 09/21/21 09:00 Aspirin 81 Mg PO DAILY [facility] Budesonide 0.5 mg 09/20/21 20:00 Budesonide 0.5 Mg/2 Ml Nebu INHALATION RT-BID VIOLETTA Carvedilol 6.25 mg 09/20/21 17:30 09/20/21 13:54 Carvedilol 6.25 Mg Tab PO 6.25 mg BID-W/MEALS VIOLETTA Administration Diclofenac Sodium 2 gm 09/20/21 12:44 Diclofenac Sodium Gel 100 Gm Tube TOPICAL BID PRN pain in feet Protocol Furosemide 40 mg 09/20/21 13:00 09/20/21 13:54 Furosemide 40 Mg Tab PO 40 mg DAILY VIOLETTA Administration Heparin Sodium (Porcine) 5,000 unit 09/20/21 21:00 Heparin Sodium,Porcine/Pf 5,000 Unit/0.5 Ml Syringe SQ Q12HR [facility] Isosorbide Mononitrate 30 mg 09/21/21 09:00 Isosorbide Mononitrate Er 30 Mg Tab.Er.24h PO DAILY [facility] Latanoprost 1 drops 09/20/21 21:00 Latanoprost 0.005% Ophth Drops 2.5 Ml Btl BOTH EYES HS [facility] Metoclopramide HCl 5 mg 09/20/21 12:44 Metoclopramide 5 Mg Tab PO QID PRN Nausea Montelukast Sodium 10 mg 09/20/21 21:00 Montelukast 10 Mg Tab PO HS VIOLETTA Naloxone HCl 0.2 mg 09/19/21 20:48 Naloxone 0.4 Mg/Ml 1 Ml Vial IV Q2M PRN Opioid Reversal Nitroglycerin 0.4 mg 09/20/21 12:44 Nitroglycerin Sl Tabs 0.4 Mg Tab SUBLINGUAL Q5M PRN Chest Pain Pantoprazole Sodium 40 mg 09/21/21 09:00 Pantoprazole 40 Mg Tablet PO DAILY [facility] Sacubitril/Valsartan 1 each 09/20/21 21:00 09/20/21 13:54 Sacubitril/Valsartan 24 Mg-26 Mg Tablet PO 1 each BID VIOLETTA Administration Intake and Output 09/19/21 09/20/21 09/20/21 22:59 06:59 14:59 Intake Total 240 Output Total 300 Balance -300 240 Intake: Oral 240 Output: Urine 300 Straight 300 Other: Voiding Method Toilet # Voids 1 1 Weight 79.832 kg 79.832 kg 09/19/21 18:44 09/19/21 18:44
[2021-09-21] MEDS: ISOSORBIDE MONONITRATE ER 30 MG TAB.ER.24H PO SCH (11:25)
--- NOTE | 2021-09-21 14:40 | ECHOF ---
Referral Reason:elevated troponin MEASUREMENTS -------- HEIGHT: 149.9 cm WEIGHT: 79.4 kg BP: 142/62 RVIDd: 3.5 cm (< 3.3) IVSd: 1.2 cm (0.6 - 1.1) LVIDd: 5.1 cm (3.9 - 5.3) LVPWd: 1.4 cm (0.6 - 1.1) IVSs: 1.3 cm LVIDs: 4.3 cm LVPWs: 1.8 cm LAESV Index (A-L): 39.60 ml/m Ao Diam: 2.7 cm (2.0 - 3.7) AV Cusp: 1.6 cm (1.5 - 2.6) LA Diam: 3.8 cm (2.7 - 3.8) MV EXCURSION: 16.144 mm (> 18.000) MV EF SLOPE: 58 mm/s (70 - 150) EPSS: 0.8 cm MV E [place]: 0.49 m/s MV DecT: 207 ms MV A [place]: 0.87 m/s MV E/A Ratio: 0.56 AR PHT: 438 ms RAP: 5.00 mmHg RVSP: 43.45 mmHg FINDINGS -------- This was a technically difficult study with suboptimal apical views. The left ventricular size is normal. There is mild concentric left ventricular hypertrophy. Overa ll left ventricular systolic function is severely impaired with, an EF between 25 - 30 %. The right ventricle is mildly enlarged. LA is moderately dilated 34-39 ml/m2 The right atrial size is normal. 3.0mg of Lumason was utilized for enhancement of images Interatrial and interventricular septum intact. There is mild aortic valve sclerosis. There is [id number] aortic regurgitation. There is no evidence of aortic stenosis. Moderate mitral regurgitation is present. Moderate tricuspid regurgitation present. There is mild to moderate pulmonary hypertension. The r ight ventricular systolic pressure, as measured by Doppler, is 43.45mmHg. There is no pulmonic regurgitation present. The aortic root size is normal. IVC Not well visuAlized. There is no pericardial effusion. CONCLUSIONS -------- 1. The left ventricular size is normal. 2. There is mild concentric left ventricular hypertrophy. 3. Overall left ventricular systolic function is severely impaired with, an EF between 25 - 30 %. 4. The right ventricle is mildly enlarged. 5. LA is moderately dilated 34-39 ml/m2 6. There is mild aortic valve sclerosis. 7. There is ghpn-ao-[id number] aortic regurgitation. 8. Moderate mitral regurgitation is present. 9. Moderate tricuspid regurgitation present. 10. There is mild to moderate pulmonary hypertension. 11. The right ventricular systolic pressure, as measured by Doppler, is 43.45mmHg. [employer] SPECIALIST: Lorin Aviles RDCS
[2021-09-21] MEDS: PHENAZOPYRIDINE 100 MG TAB PO SCH ×2 (16:51→21:38)
[2021-09-21] MEDS: MONTELUKAST 10 MG TAB PO SCH (21:37)
[2021-09-21] MEDS: LATANOPROST 0.005% OPHTH DROPS 2.5 ML BTL BOTH EYES SCH (21:38)
[2021-09-22] MEDS: ACETAMINOPHEN TAB 325 MG TAB PO PRN ×2 (04:34→15:32)
[2021-09-22] MEDS: carvediloL 6.25 MG TAB PO SCH (06:53)
[2021-09-22] MEDS: SACUBITRIL/VALSARTAN 24 MG-26 MG TABLET PO SCH (08:14)
[2021-09-22] MEDS: ASPIRIN 81 MG PO SCH (08:14)
[2021-09-22] MEDS: PHENAZOPYRIDINE 100 MG TAB PO SCH ×2 (08:14→15:31)
[2021-09-22] MEDS: PANTOPRAZOLE 40 MG TABLET PO SCH (08:14)
[2021-09-22] MEDS: HEPARIN SODIUM,PORCINE/PF 5,000 UNIT/0.5 ML SYRINGE SQ SCH (08:15)
[2021-09-22] MEDS: BUDESONIDE 0.5 MG/2 ML NEBU INHALATION SCH (09:24)
[2021-09-22 12:16] VITALS: TEMP 98.2
[2021-09-22] MEDS: FUROSEMIDE 40 MG TAB PO SCH (12:17)
[2021-09-22] MEDS: ISOSORBIDE MONONITRATE ER 30 MG TAB.ER.24H PO SCH (12:17)
--- NOTE | 2021-09-22 14:26 | P.PN ---
Subjective Progress Note Date: 09/21/21 Principal diagnosis: Altered mental status; multifactorial -Toxic metabolic encephalopathy related to UTI/dehydration -Polypharmacy Acute exacerbation CHF Elevated troponin Hyponatremic 81-year-old pleasant female was brought in because of altered mental status patient is alert oriented 3 when I evaluated the patient patient the had the history of for a back surgery after which patient was started on [place] and after started [place] patient started having confusion. At that time urine analysis was done which was abnormal and patient was believed to have UTI beget which led to her confusion because of which patient was started on ciprofloxacin.. Patient confusion has gotten worse and patient came to Hospital today. Patient was told that her urinary tract infection is not improving with ciprofloxacin. Patient other medications that can cause confusion including Lomotil, levo cetirizine. Patient presently doesn't have any dysuria doesn't have any fever does have leukocytosis, patient received ciprofloxacin urine is definitely abnormal in ER. Patient is bit hyponatremic patient does have history of congestive heart failure EF of around 20-25% patient has ischemic adenopathy patient is an enterostomal for that patient has mildly elevated troponins were all the patient denied any chest pain. Patient seen and evaluated with family members at bedside; continues to report of severe lower abdominal pain and burning on urination; currently awake alert and oriented; detailed discussion about negative urine culture with patient and family report that patient was treated with oral Cipro for 3 days prior to coming to the hospital; urine culture has been negative; we will continue with empiric antibiotic treatment for complete a total of 5 days; we will add Pyridium - Patient reports back pain; patient's daughter insists that patient's pain is well-controlled with current Objective - Vital Signs Vital signs: Vital Signs Temp 97.4 F L 09/21/21 11:20 Pulse 67 09/21/21 11:20 Resp 18 09/21/21 11:20 BP 119/72 09/21/21 11:20 Pulse Ox 98 09/21/21 11:20 Intake & Output 09/20/21 09/21/21 09/21/21 18:59 06:59 18:59 Intake Total 358 320 120 Balance 358 320 120 Weight 79.6 kg Intake: Oral 358 320 120 Other: Voiding Method Diaper Diaper # Voids 1 2 # Bowel Movements 1 1 - Exam GENERAL: The patient is alert and oriented x3, not in any acute distress. Well developed, well nourished. HEENT: Pupils are round and equally reacting to light. EOMI. No scleral icterus. No conjunctival pallor. Normocephalic, atraumatic. No pharyngeal erythema. No thyromegaly. CARDIOVASCULAR: S1 and S2 present. No murmurs, rubs, or gallops. PULMONARY: Chest is clear to auscultation, no wheezing or crackles. ABDOMEN: Soft, nontender, nondistended, normoactive bowel sounds. No palpable organomegaly. MUSCULOSKELETAL: No joint swelling or deformity. EXTREMITIES: No cyanosis, clubbing, or pedal edema. NEUROLOGICAL: Gross neurological examination did not reveal any focal deficits. Does have generalized weakness - Labs CBC & Chem 7: 09/21/21 07:24 09/21/21 07:24 Labs: Abnormal Lab Results - Last 24 Hours (Table) 09/21/21 09/21/21 Range/Units 07:24 07:24 WBC 14.4 H (3.8-10.6) k/uL RBC 3.68 L (3.80-5.40) m/uL Hgb 11.2 L (11.4-16.0) gm/dL Hct 33.1 L (34.0-46.0) % Sodium 132 L (137-145) mmol/L Chloride 96 L (98-107) mmol/L Carbon Dioxide 31 H (22-30) mmol/L Glucose 113 H (74-99) mg/dL Microbiology - Last 24 Hours (Table) 09/19/21 21:17 Urine Culture - Final Urine,Voided Assessment and Plan Assessment: -Altered mental status toxic encephalopathy and believed mostly because of the medications were particularly [place] because of the temporal association with contribution from other medications including anticholinergics that is cetirizine. These medications will be held patient is already feeling better. Patient will the not be started on antibiotics we'll repeat the CBC tomorrow monitor her overnight. Patient probably has asymptomatic bacteriuria. Her confusion has worsened because of for ciprofloxacin. Family as is at bedside which helps with the owners. -Hyponatremia probably mild hypervolumia secondary to heart failure we'll obtain a BNP patient will restart back on enterostomal and Lasix -Can start failure chronic systolic dysfunction with mild acute exacerbation -Mild troponin elevation secondary to CHF most probably cardiology will be cons ulted troponins are not going up. -Possibly asymptomatic bacteriuria -Gases visual reflux disease -Hypertension -Sleep apnea
[2021-09-22 15:37] VITALS: BP 120/73; PULSE 68; RESP 19
[2021-09-22 15:52] LABS: Basophils % (A) 0 %; Eosinophils # (A) 0.1 k/uL (0-0.7); Eosinophils % (A) 2 %; HCT 31.6 % (34.0-46.0); HGB 10.5 gm/dL (11.4-16.0); Lymphocytes % (A) 12 %; MCH 30.1 pg (25.0-35.0); MCHC 33.3 g/dL (31.0-37.0); MCV 90.4 fL (80.0-100.0); Mean Platelet Volume 8.5; Monocytes # (A) 0.6 k/uL (0-1.0); Monocytes % (A) 8 %; Neutrophils # (A) 6.4 k/uL (1.3-7.7); Neutrophils % (A) 77 %; Platelet Count 255 k/uL (150-450); RDW 12.9 % (11.5-15.5); WBC 8.4 k/uL (3.8-10.6)
[2021-09-22 16:26] LABS: Calcium 8.3 mg/dL (8.4-10.2); Potassium 3.3 mmol/L (3.5-5.1)
--- NOTE | 2021-09-22 17:23 | P.PN ---
Subjective Progress Note Date: 09/22/21 This 81-year-old female is known nonischemic heart myopathy, chronic systolic heart failure, hypertension, left bundle branch block who was admitted to the hospital with altered mental status. Apparently she got steroid injection about a week ago for back pain. Patient was also started on [place]. Patient is found to have urinary tract infection and was started on antibiotics. We're asked to see the patient because of mildly elevated troponin. Patient had a recent cardiac catheterization and was not found to have any Sigmund obstructive disease. Echocardiogram showed stable LV function which is severely impaired without any new wall motion abnormalities. She is advised to continue current medical therapy. Follow-up in the office Objective - Vital Signs Vital signs: Vital Signs Temp 98.2 F 09/22/21 15:36 Pulse 68 09/22/21 15:36 Resp 19 09/22/21 15:36 BP 120/73 09/22/21 15:36 Pulse Ox 96 09/22/21 15:36 Intake & Output 09/21/21 09/22/21 09/22/21 18:59 06:59 18:59 Intake Total 410 900 Balance 410 900 Weight 80.4 kg Intake: Intake, IV Titration 50 Amount cefTRIAXone 1 gm In 50 Sodium Chloride 0.9% 50 ml @ 100 mls/hr IVPB Q24HR [facility] Rx#:[id number] Oral 360 900 Other: Voiding Method Toilet Toilet Toilet Diaper # Voids 1 1 1 - Exam GENERAL EXAM: Patient is alert and oriented and doesn't appear to be in any acute distress HEENT: Normocephalic. Normal reaction of pupils, equal size, normal range of extraocular motion. No erythema or exudates in the throat. NECK: No masses, no nuchal rigidity. CHEST: No chest wall deformity. LUNGS: Equal air entry with no crackles or wheeze. HEART: S1 and S2 normal with no audible mumurs or gallops. Regular rhythm, femorals equal on both sides.. ABDOMEN: No hepatosplenomegaly, normal bowel sounds, no guarding or rigidity. SKIN: No rashes CENTRAL NERVOUS SYSTEM: No focal deficits. EXTREMITIES: No cyanosis, clubbing or edema. - Labs CBC & Chem 7: 09/22/21 15:27 09/22/21 15:27 Labs: Abnormal Lab Results - Last 24 Hours (Table) 09/22/21 09/22/21 Range/Units 15:27 15:27 RBC 3.50 L (3.80-5.40) m/uL Hgb 10.5 L (11.4-16.0) gm/dL Hct 31.6 L (34.0-46.0) % Sodium 132 L (137-145) mmol/L Potassium 3.3 L (3.5-5.1) mmol/L Chloride 95 L (98-107) mmol/L Glucose 115 H (74-99) mg/dL Calcium 8.3 L (8.4-10.2) mg/dL Assessment and Plan (1) Nonischemic cardiomyopathy Current Visit: Yes Status: Acute Code(s): I42.8 - OTHER CARDIOMYOPATHIES SNOMED Code(s): 15941923 (2) Altered mental status Current Visit: Yes Status: Acute Code(s): R41.82 - ALTERED MENTAL STATUS, UNSPECIFIED SNOMED Code(s): 156848518 (3) Troponin level elevated Current Visit: Yes Status: Acute Code(s): R77.8 - OTHER SPECIFIED ABNORMALITIES OF PLASMA PROTEINS SNOMED Code(s): 634113277 Plan: The troponin elevation is nonspecific and not suggestive of acute coronary syndrome. Recent cardiac cath did not show an obstructive disease. Patient did not have any chest pain. From Cardec standpoint patient could be discharged home when medically stable. Follow-up in the office
== END 2021-09-22 18:03 | disposition home health service (06) | DRG 689 ==
LOC: EC 18:17 → 3SCARD 20:50 → OBSVTOIN 09-22 08:22
PROVIDERS: ADMIT Internal Medicine; ATTEND Internal Medicine
DX: N39.0 Urinary tract infection, site not specified (principal); G92.8 Other toxic encephalopathy; E87.1 Hypo-osmolality and hyponatremia; I42.8 Other cardiomyopathies; I50.22 Chronic systolic (congestive) heart failure; J98.11 Atelectasis; I11.0 Hypertensive heart disease with heart failure; R79.89 Other specified abnormal findings of blood chemistry; Z20.822 Contact with and (suspected) exposure to COVID-19; G31.89 Other specified degenerative diseases of nervous system; E86.0 Dehydration; I27.20 Pulmonary hypertension, unspecified; I08.3 Combined rheumatic disorders of mitral, aortic and tricuspid valves; G47.30 Sleep apnea, unspecified; I44.7 Left bundle-branch block, unspecified; I48.91 Unspecified atrial fibrillation; J45.909 Unspecified asthma, uncomplicated; K21.9 Gastro-esophageal reflux disease without esophagitis; Z79.82 Long term (current) use of aspirin; Z79.899 Other long term (current) drug therapy; Z87.891 Personal history of nicotine dependence; Z90.710 Acquired absence of both cervix and uterus; Z82.49 Family history of ischemic heart disease and other diseases of the circulatory system; Z88.0 Allergy status to penicillin; Z88.5 Allergy status to narcotic agent; Z88.8 Allergy status to other drugs, medicaments and biological substances; Z88.6 Allergy status to analgesic agent; Z88.2 Allergy status to sulfonamides
CPT/HCPCS: 36415; 70450; 71046; 80048; 80053; 81001; 83735; 83880; 84484; 85025; 85027; 85610; 85730; 87086; 87635; 93005; 93306; 94640; 96361; 96374; 99285

== ENCOUNTER 2021-10-13 16:57 | Emergency (ER) | payer MEDICARE ==
[2021-10-13 17:55] VITALS: TEMP 97.5
[2021-10-13] MEDS ORDERED: SODIUM CHLORIDE 0.9% 500 ML 500 ML IV STA (18:23)
[2021-10-13 19:03] LABS: Appearance,Urine Cloudy (Clear); Bacteria,Urine Occasional /hpf; Bilirubin,Urine Negative (Negative); Blood,Urine Small (Negative); Color,Urine Yellow; Glucose,Urine (UA) Negative (Negative); Ketones,Urine Negative (Negative); Leukocyte Esterase,Urine Large (Negative); Mucus,Urine Rare /hpf; Nitrite,Urine Negative (Negative); PH, Urine 5.5 (5.0-8.0); Protein,Urine Trace (Negative); RBC,Urine 2 /hpf (0-5); Specific Gravity,Urine 1.008 (1.001-1.035); Squamous Epithelial Cell,Urine 1 /hpf (0-4); Urobilinogen,Urine <2.0 mg/dL (<2.0); WBC,Urine 93 /hpf (0-5)
--- NOTE | 2021-10-13 19:17 | ED ---
Abdominal Pain HPI - General Chief Complaint: Abdominal Pain Stated Complaint: Diarrhea Time Seen by Provider: 10/13/21 17:58 Source: patient Mode of arrival: ambulatory Limitations: no limitations - History of Present Illness Initial Comments: 81 year-old female patient presents to the emergency department at the request of her physician for abnormal CT scan. Daughter states they were sent in due to findings of possible COVID pneumonia on CT, presence of enlarged lymph nodes in the abdomen, and possible mild diverticulitis. Patient states in August she had injections in her back and shortly after developed urinary tract infection. States that she had the injections again and started to feel the same way. States yesterday she had pretty significant lower abdominal pain with radiation to the back. States that she did have several episodes of diarrhea and did have a vomiting episode today. Denies fever or chills. Has been fully vaccinated for COVID. Does have history of diverticulitis, states her current symptoms feel different. Patient denies any recent rash, cough, shortness of breath, chest pain, constipation, back pain, numbness, tingling, dizziness, weakness, headache, visual changes, or any other complaints. - Related Data Home Medications Medication Instructions Recorded Confirmed Levocetirizine Dihydrochloride 5 mg PO HS 06/07/17 09/19/21 Montelukast [Singulair] 10 mg PO HS 06/07/17 09/19/21 Omeprazole [PriLOSEC] 40 mg PO DAILY 06/07/17 09/19/21 Aspirin EC [Ecotrin Low Dose] 81 mg PO DAILY 10/10/19 09/19/21 Budesonide [Pulmicort] 0.5 mg INHALATION RT-BID 10/10/19 09/19/21 Diclofenac Sodium Gel [Voltaren 1 applic TOPICAL BID PRN 10/10/19 09/19/21 Gel] Latanoprost [Xalatan 0.005%] 1 drop BOTH EYES HS 10/10/19 09/19/21 Albuterol Inhaler [Ventolin Hfa 2 puff INHALATION RT-QID PRN 09/19/21 09/19/21 Inhaler] Carvedilol [Coreg] 6.25 mg PO BID 09/19/21 09/19/21 Dicyclomine [Bentyl] 20 mg PO TID-W/MEALS PRN 09/19/21 09/19/21 Furosemide [Lasix] 40 mg PO DAILY 09/19/21 09/19/21 HYDROcodone/APAP 5-325MG [[place] 1 tab PO BID PRN 09/19/21 09/19/21 5-325] Isosorbide Mononitrate ER [Imdur] 30 mg PO DAILY 09/19/21 09/19/21 Metoclopramide [Reglan] 5 mg PO QID PRN 09/19/21 09/19/21 Phenazopyridine HCl [Uristat Ultra] 99.5 - 199 mg PO TID PRN 09/19/21 09/19/21 Sacubitril/Valsartan [Entresto 24 1 tab PO BID 09/19/21 09/19/21 mg-26 mg Tablet] Previous Rx's Medication Instructions Recorded Nitroglycerin Sl Tabs [Nitrostat] 0.4 mg SUBLINGUAL Q5M PRN #25 tab 10/14/19 Cephalexin [Keflex] 500 mg PO Q8HR 6 Days #18 cap 09/22/21 Phenazopyridine [Pyridium] 100 mg PO TID #7 tab 09/22/21 Moxifloxacin HCl [Avelox] 400 mg PO DAILY #10 tablet 10/13/21 Allergies Allergy/AdvReac Type Severity Reaction Status Date / Time ibuprofen [From Motrin] Allergy Unknown Abdominal Verified 09/19/21 20:08 Pain metoprolol Allergy Unknown Hallucinati Verified 09/19/21 20:08 ons Penicillins Allergy Unknown Rash/Hives Verified 09/19/21 20:08 Sulfa (Sulfonamide Allergy Unknown Rash/Hives Verified 09/19/21 20:08 Antibiotics) midazolam [From Versed] Allergy Nausea & Verified 09/19/21 20:08 Vomiting nebivolol [From Bystolic] AdvReac Unknown Hallucinati Verified 09/19/21 20:08 ons fentanyl AdvReac Nausea & Verified 09/19/21 20:08 Vomiting morphine AdvReac Nausea & Verified 09/19/21 20:08 Vomiting Review of Systems ROS Statement: Those systems with pertinent positive or pertinent negative responses have been documented in the HPI. ROS Other: All systems not noted in ROS Statement are negative. Past Medical History Past Medical History: Atrial Fibrillation, Asthma, Heart Failure, GERD/Reflux, Hypertension, Sleep Apnea/CPAP/BIPAP Additional Past Medical History / Comment(s): IBS, autoimmune disease (unsure of disease, needed lung biopsy to diagnose and biopsy was not done), uses CPAP at home. History of Any Multi-Drug Resistant Organisms: None Reported Past Surgical History: Appendectomy, Cholecystectomy, Heart Catheterization, Hernia Repair, Hysterectomy, Tonsillectomy Additional Past Surgical History / Comment(s): varicose vein stripping Past Anesthesia/Blood Transfusion Reactions: Postoperative Nausea & Vomiting (PONV) Past Psychological History: No Psychological Hx Reported Smoking Status: Former smoker Past Alcohol Use History: Daily Past Drug Use History: None Reported - Past Family History Mother Family Medical History: Congestive Heart Failure (CHF) Father Additional Family Medical History / Comment(s): of aneurysm. General Exam Limitations: no limitations General appearance: alert, in no apparent distress, other (This is a well- developed, well-nourished adult female in no acute distress.) Eye exam: Present: normal appearance, PERRL, EOMI. Absent: scleral icterus, conjunctival injection, periorbital swelling ENT exam: Present: normal exam, normal oropharynx, mucous membranes moist Respiratory exam: Present: normal lung sounds bilaterally. Absent: respiratory distress, wheezes, rales, rhonchi, stridor Cardiovascular Exam: Present: regular rate, normal rhythm, normal heart sounds. Absent: systolic murmur, diastolic murmur, rubs, gallop, clicks GI/Abdominal exam: Present: soft, normal bowel sounds. Absent: distended, tenderness, guarding, rebound, rigid Neurological exam: Present: alert, oriented X3, CN II-XII intact Psychiatric exam: Present: normal affect, normal mood Skin exam: Present: warm, dry, intact, normal color. Absent: rash Course Vital Signs 10/13/21 10/13/21 17:49 21:10 Temperature 97.5 F L Pulse Rate 87 78 Respiratory 18 16 Rate Blood Pressure 150/82 119/64 O2 Sat by Pulse 98 96 Oximetry Medical Decision Making - Medical Decision Making 81-year-old female patient presented to the emergency department for evaluation after having an abnormal outpatient computed tomography scan. Physical examination did reveal soft nontender abdomen. She is afebrile normal vital signs. Labs reviewed and were unremarkable. She did have evidence for urinary tract infection. Computed tomography scan was reviewed and did show borderline and large abdominal lymph nodes. Also had some fat stranding around diverticular concerning for maybe mild diverticulitis. We will treat with moxifloxacin which will cover UTI and diverticulitis pending urine culture. She did have a negative COVID-19. She'll be discharged to follow-up with her primary care physician, they are considering PET scan. Return parameters were discussed in detail. She verbalizes understanding and agrees with this plan. My attending is Dr. Parr. - Lab Data Result diagrams: 10/13/21 18:30 10/13/21 19:25 Lab Results 10/13/21 10/13/21 10/13/21 Range/Units 18:30 18:30 18:30 WBC 6.5 (3.8-10.6) k/uL RBC 4.60 (3.80-5.40) m/uL Hgb 13.3 (11.4-16.0) gm/dL Hct 41.4 (34.0-46.0) % MCV 89.9 (80.0-100.0) fL MCH 28.8 (25.0-35.0) pg MCHC 32.0 (31.0-37.0) g/dL RDW 13.8 (11.5-15.5) % Plt Count 306 (150-450) k/uL MPV 8.3 Neutrophils % 66 % Lymphocytes % 25 % Monocytes % 7 % Eosinophils % 1 % Basophils % 1 % Neutrophils # 4.2 (1.3-7.7) k/uL Lymphocytes # 1.6 (1.0-4.8) k/uL Monocytes # 0.5 (0-1.0) k/uL Eosinophils # 0.0 (0-0.7) k/uL Basophils # 0.0 (0-0.2) k/uL Sodium (137-145) mmol/L Potassium (3.5-5.1) mmol/L Chloride (98-107) mmol/L Carbon Dioxide (22-30) mmol/L Anion Gap mmol/L BUN (7-17) mg/dL Creatinine (0.52-1.04) mg/dL Est GFR (CKD-EPI)AfAm (>60 ml/min/1.73 sqM) Est GFR (CKD-EPI)NonAf (>60 ml/min/1.73 sqM) Glucose (74-99) mg/dL Plasma Lactic Acid Jose 1.3 (0.7-2.0) mmol/L Calcium (8.4-10.2) mg/dL Total Bilirubin (0.2-1.3) mg/dL AST (14-36) U/L ALT (4-34) U/L Alkaline Phosphatase (38-126) U/L Total Protein (6.3-8.2) g/dL Albumin (3.5-5.0) g/dL Lipase (23-300) U/L Urine Color Yellow Urine Appearance Cloudy H (Clear) Urine pH 5.5 (5.0-8.0) Ur Specific [place] 1.008 (1.001-1.035) Urine Protein Trace H (Negative) Urine Glucose (UA) Negative (Negative) Urine Ketones Negative (Negative) Urine Blood Small H (Negative) Urine Nitrite Negative (Negative) Urine Bilirubin Negative (Negative) Urine Urobilinogen <2.0 (<2.0) mg/dL Ur Leukocyte Esterase Large H (Negative) Urine RBC 2 (0-5) /hpf Urine WBC 93 H (0-5) /hpf Urine WBC Clumps Many H (None) /hpf Ur Squamous Epith Cells 1 (0-4) /hpf Urine Bacteria Occasional H (None) /hpf Urine Mucus Rare H (None) /hpf Coronavirus (PCR) (Not Detectd) 10/13/21 10/13/21 Range/Units 18:30 19:25 WBC (3.8-10.6) k/uL RBC (3.80-5.40) m/uL Hgb (11.4-16.0) gm/dL Hct (34.0-46.0) % MCV (80.0-100.0) fL MCH (25.0-35.0) pg MCHC (31.0-37.0) g/dL RDW (11.5-15.5) % Plt Count (150-450) k/uL MPV Neutrophils % % Lymphocytes % % Monocytes % % Eosinophils % % Basophils % % Neutrophils # (1.3-7.7) k/uL Lymphocytes # (1.0-4.8) k/uL Monocytes # (0-1.0) k/uL Eosinophils # (0-0.7) k/uL Basophils # (0-0.2) k/uL Sodium 135 L (137-145) mmol/L Potassium 3.7 (3.5-5.1) mmol/L Chloride 99 (98-107) mmol/L Carbon Dioxide 26 (22-30) mmol/L Anion Gap 10 mmol/L BUN 16 (7-17) mg/dL Creatinine 0.75 (0.52-1.04) mg/dL Est GFR (CKD-EPI)AfAm 86 (>60 ml/min/1.73 sqM) Est GFR (CKD-EPI)NonAf 75 (>60 ml/min/1.73 sqM) Glucose 147 H (74-99) mg/dL Plasma Lactic Acid Jose (0.7-2.0) mmol/L Calcium 9.3 (8.4-10.2) mg/dL Total Bilirubin 0.8 (0.2-1.3) mg/dL AST 21 (14-36) U/L ALT 14 (4-34) U/L Alkaline Phosphatase 75 (38-126) U/L Total Protein 6.7 (6.3-8.2) g/dL Albumin 4.0 (3.5-5.0) g/dL Lipase 86 (23-300) U/L Urine Color Urine Appearance (Clear) Urine pH (5.0-8.0) Ur Specific [place] (1.001-1.035) Urine Protein (Negative) Urine Glucose (UA) (Negative) Urine Ketones (Negative) Urine Blood (Negative) Urine Nitrite (Negative) Urine Bilirubin (Negative) Urine Urobilinogen (<2.0) mg/dL Ur Leukocyte Esterase (Negative) Urine RBC (0-5) /hpf Urine WBC (0-5) /hpf Urine WBC Clumps (None) /hpf Ur Squamous Epith Cells (0-4) /hpf Urine Bacteria (None) /hpf Urine Mucus (None) /hpf Coronavirus (PCR) Not Detected (Not Detectd) - Radiology Data Radiology results: report reviewed Disposition Clinical Impression: Diverticulitis, Urinary tract infection, Abdominal lymphadenopathy Disposition: HOME SELF-CARE Condition: Good Instructions (If sedation given, give patient instructions): Diverticulitis (ED), Urinary Tract Infection in Women (ED), Lymphadenopathy (ED) Additional Instructions: Take medication as directed. Follow-up with the primary care physician for recheck and possible PET scan as soon as possible. Return to the emergency department immediately for any new, worsening, or concerning symptoms. Prescriptions: Moxifloxacin HCl [Avelox] 400 mg PO DAILY #10 tablet Is patient prescribed a controlled substance at d/c from ED?: No Referrals: Ko Matthews MD [Primary Care Provider] - 1-2 days Time of Disposition: 20:18
[2021-10-13 19:28] LABS: Basophils % (A) 1 %; Eosinophils % (A) 1 %; HCT 41.4 % (34.0-46.0); HGB 13.3 gm/dL (11.4-16.0); Lymphocytes # (A) 1.6 k/uL (1.0-4.8); Lymphocytes % (A) 25 %; MCH 28.8 pg (25.0-35.0); MCV 89.9 fL (80.0-100.0); Mean Platelet Volume 8.3; Monocytes # (A) 0.5 k/uL (0-1.0); Monocytes % (A) 7 %; Neutrophils # (A) 4.2 k/uL (1.3-7.7); Neutrophils % (A) 66 %; Platelet Count 306 k/uL (150-450); RDW 13.8 % (11.5-15.5); WBC 6.5 k/uL (3.8-10.6)
[2021-10-13 19:44] LABS: Calcium 9.3 mg/dL (8.4-10.2); Potassium 3.7 mmol/L (3.5-5.1); Total Bilirubin 0.8 mg/dL (0.2-1.3); Total Protein 6.7 g/dL (6.3-8.2)
[2021-10-13] MEDS ORDERED: LEVOFLOXACIN 500 MG TAB PO STA (20:15)
[2021-10-13] MEDS ORDERED: cefTRIAXone IN SWFI 1,000 MG/10 ML SYRINGE IVP STA (20:15)
[2021-10-13 21:17] VITALS: BP 119/64; PULSE 78; RESP 16
== END 2021-10-13 21:24 | disposition home or self-care (01) ==
LOC: EC 16:57
DX: R19.7 Diarrhea, unspecified (principal); K57.92 Diverticulitis of intestine, part unspecified, without perforation or abscess without bleeding; N39.0 Urinary tract infection, site not specified; R59.0 Localized enlarged lymph nodes; Z20.822 Contact with and (suspected) exposure to COVID-19; Z87.891 Personal history of nicotine dependence; I11.0 Hypertensive heart disease with heart failure; I50.9 Heart failure, unspecified; J45.909 Unspecified asthma, uncomplicated; K21.9 Gastro-esophageal reflux disease without esophagitis; I48.91 Unspecified atrial fibrillation; Z90.49 Acquired absence of other specified parts of digestive tract; Z88.6 Allergy status to analgesic agent; Z88.8 Allergy status to other drugs, medicaments and biological substances; Z88.0 Allergy status to penicillin; Z88.2 Allergy status to sulfonamides; Z88.5 Allergy status to narcotic agent; Z79.82 Long term (current) use of aspirin; Z79.899 Other long term (current) drug therapy; Z79.51 Long term (current) use of inhaled steroids
CPT/HCPCS: 36415; 80053; 83605; 83690; 85025; 81001; 87086; 87635; 99284; 96374; 96361; J0696; 87077; 87186

== ENCOUNTER → 2021-10-13 | Outpatient (CLI) | payer MEDICARE ==
--- NOTE | 2021-10-13 13:30 | CT ---
EXAMINATION TYPE: CT abdomen pelvis wo con DATE OF EXAM: 10/13/2021 COMPARISON: None HISTORY: 81-year-old female N20.0, flank pain, recent UTI CT DLP: 581.4 mGycm. Automated exposure control for dose reduction was used. TECHNIQUE: Contiguous axial scanning of the abdomen and pelvis without IV contrast. Coronal and sagit miguel reconstructions performed. FINDINGS: Heart mildly enlarged. Patchy bibasilar groundglass opacities are present. No pleural effusion. Small hiatal hernia. Ectatic lower descending thoracic aorta at 2.5 cm. Noncontrast appearance of the liver shows a vague hypoechoic area along the lateral margin of the rig ht liver lobe measuring 1.5 cm, axial image 18. Cholecystectomy clips. Bile duct estimated at 6 mm, acceptable. Noncontrast appearance of the adrenal glands, kidneys, spleen, and mildly atrophic pancreas show no g ross abdomen body. No renal calculi or hydronephrosis is seen. Numerous nonenlarged and borderline sized mesenteric lymph nodes measuring up to 6 mm. Some additiona l (retroperitoneal nodes measuring up to 6 mm. An enlarged retrocaval lymph node measures 1.5 cm, axi al image 48 and coronal image 48. A couple prominent lymph nodes along the proximal common iliac chains measure up to 9 mm. Left external iliac chain lymph node mildly enlarged at 1 cm. Additional nonenlarged numerous lymph n odes are present along the iliac chains at both sites. No dilated small bowel, free fluid, or free air. Mild stool in the right side of the colon. Generalized colonic diverticulosis, greatest in the sigmoi d colon. There is very mild pericolonic fat stranding along the distal sigmoid colon that could repr esent prominent vessels or mild inflammation. Bladder is urine distended. Uterus surgically absent. No abnormal fluid collection in the pelvis. Bones: Moderate degenerative change of the hips. Hypertrophic facet arthropathy mid to lower lumbar s pine with grade 1 anterolisthesis L4-L5. IMPRESSION: 1. Bibasilar patchy groundglass could represent areas of prominent atelectasis. Correlate to exclude pneumonitis including COVID pneumonia. 2. Generalized colonic diverticulosis, greatest in the sigmoid colon. Mild pericolonic fat stranding along the distal sigmoid could represent prominent vessels or mild inflammation. Clinically correlate for mild acute diverticulitis. No abscess or free air. 3. No renal calculi or hydronephrosis. 4. Numerous scattered borderline sized mesenteric lymph nodes. Retroperitoneal lymph nodes are also b orderline enlarged. At least one is enlarged at 1.5 cm in the retrocaval region. Findings may be reac tive/post inflammatory. The patient should be followed to exclude metastatic disease or lymphoma. Con business intelligence engineer a three-month follow-up to reassess versus PET CT evaluation.
== END | disposition home or self-care (01) ==
LOC: RADCTMAIN 12:51
PROVIDERS: ATTEND Family Medicine
DX: K57.30 Diverticulosis of large intestine without perforation or abscess without bleeding (principal)
CPT/HCPCS: 74176

== ENCOUNTER → 2021-11-08 | Outpatient (CLI) | payer MEDICARE ==
--- NOTE | 2021-11-08 15:49 | US ---
EXAMINATION TYPE: US venous doppler duplex LE BI DATE OF EXAM: 11/08/2021 3:37 PM COMPARISON: NONE CLINICAL HISTORY: R60.0 LOCALIZED EDEMA. Pt states leg pain, no known h/o DVT, prior vein stripping SIDE PERFORMED: Bilateral TECHNIQUE: The lower extremity deep venous system is examined utilizing real time linear array sonog enrique with graded compression, doppler sonography and color-flow sonography. VESSELS IMAGED: Common Femoral Vein Deep Femoral Vein Greater Saphenous Vein * Femoral Vein Popliteal Vein Small Saphenous Vein * Proximal Calf Veins (* superficial vessels) Right Leg: Negative for DVT Left Leg: Negative for DVT Results called to Elizabeth at Dr's office at time of exam IMPRESSION: No evidence of DVT at this time.
== END | disposition home or self-care (01) ==
LOC: RADUSWWP 15:01
PROVIDERS: ATTEND Family Medicine
DX: R60.0 Localized edema (principal)
CPT/HCPCS: 93970

== ENCOUNTER → 2021-11-17 | Outpatient (CLI) | payer MEDICARE ==
--- NOTE | 2021-11-23 15:17 | PE ---
Nuclear medicine PET/CT HISTORY: Mesenteric lymphadenitis, I 88.0, lymphoma abdomen initial, abnormal CT Patient received 11.3 mCi F-18 FDG intravenously in delayed scanning was performed from the skull bas e to the mid thighs. Localization and attenuation correction CT scan was performed. Correlation to CT scan 10/13/2021 Chest and neck: There is no suspicious uptake. There is no cervical, supraclavicular, mediastinal, ax illary, or hilar adenopathy. No evident lung mass. No pleural or pericardial effusion. Some probable basilar atelectatic changes or scarring noted. The heart is enlarged. There is a hiatal hernia presen t. ABDOMEN: Patient is post cholecystectomy, no evident liver mass. No adrenal mass. Retroperitoneal nod e posterior to the inferior vena cava the right shows associated hypermetabolic uptake and is borderl ine enlarged, SUV 2.6. Nonspecific mesenteric nodes are present without definitive uptake. Extensive diverticular changes associated with the sigmoid colon, some hypermetabolic uptake is noted at this l evel which is nonspecific, could be inflammatory. If bowel surveillance has not been performed then i t should be considered. Osseous structures show no suspicious uptake. Degenerative disc changes and facet arthropathy noted i n the lumbar spine IMPRESSION: There is abnormal uptake associated with borderline retroperitoneal lymph node. Follow-up suggested. Cardiomegaly. Postop changes. Additional findings above.
== END | disposition home or self-care (01) ==
LOC: RADPETMAIN 12:59
PROVIDERS: ATTEND Family Medicine
DX: I88.0 Nonspecific mesenteric lymphadenitis (principal)
CPT/HCPCS: 78815; A9552

== ENCOUNTER → 2021-12-27 | Outpatient (CLI) | payer MEDICARE ==
--- NOTE | 2021-12-27 13:54 | SFUN ---
SLEEP CENTER FOLLOW UP NOTE DATE OF SERVICE: 12/27/2021 This 81-year-old lady has been followed in Sleep Center for treatment of obstructive sleep apnea-hypopnea syndrome. The patient continues to use her CPAP equipment, but she had some problems with the mask. The mask was changed to a DreamWear mask which goes under the nose and pipes go up. Subsequently connection with the tube is above her head. In the middle of the night when she goes to the bathroom she might not put her mask back on. She does not have complaints about the level of pressure. Her Anson Sleepiness Scale today is 5, which is normal. I checked her CPAP unit. Range of the pressure is 5 to 11, average pressure 10.2. Usage is 28/30 nights but only 7/30 nights for more than 4 hours. Average 2.9 hours per night. Leak is 13 L/minute, which is acceptable. Apnea-hypopnea index increased to 10.8. No central events at all; zero. CURRENT MEDICATIONS: 1. Lasix 40 mg once a day. 2. Imdur 30 mg once a day. 3. - Valsartan 24 - 26 mg twice a day. 4. Carvedilol 3.125 mg twice a day. 5. Aspirin 81 mg once a day. 6. Nitroglycerin as needed. 7. Omeprazole 40 mg once a day. 8. Metoclopramide 5 mg up to 4 times a day. 9. Bentyl 10 mg 3 times a day. 10.Levocetirizine 5 mg once a day. 11.Montelukast 10 mg once a day. 12.Albuterol rescue inhaler. 13.Latanoprost eye drops. PHYSICAL EXAMINATION: GENERAL: Pleasant patient in no distress. VITAL SIGNS: BP 100/68, HR 73, RR 15, height 5 feet, weight 177.2 pounds, temperature 97.3, oxygen saturation at room air 99%. HEENT: PERRLA, EOMI, evaluation of oropharynx showed tongue protrudes midline. Extremely low position of soft palate; Mallampati IV. NECK: Supple, no JVD. Thyroid is not palpable. LUNGS: Clear to percussion and to auscultation. Good air exchange. No wheezing or rhonchi. HEART: S1, S2 regular. No murmurs, gallops, or rubs. ABDOMEN: Soft and nontender. Bowel sounds are present. No organomegaly appreciated. EXTREMITIES: No clubbing or cyanosis. MECHANICAL HANDYMAN: Awake, alert, and oriented X3. Cranial nerves 2 to 7 intact. There is no fasciculation or atrophy. noted. No focal deficits observed. IMPRESSION: 1. Obstructive sleep apnea-hypopnea syndrome. The patient continues to use CPAP equipment practically every night but sometimes takes her mask off in the middle of the night. Apnea-hypopnea index increased to 10.8. No central apneas. 2. Mild obesity. 3. Asthma. 4. Hypertension. 5. History of congestive heart failure. 6. Acid reflux. 7. Status post hysterectomy. 8. Status post hernia repair. 9. Status post cholecystectomy. 10.Status post appendectomy. 11.Status post surgical treatment of venous problems of the legs. PLAN: 1. I changed the pressure in the machine to the range 5 to 14 cm of water. 2. The patient should not take her mask off in the middle of the night when she goes to the bathroom. She may just disconnect the tube in the connection to the mask and then connect it again. 3. Patient will continue to use PAP equipment every night for the whole night. 4. Sleep hygiene with regular time in bed for at least 7-1/2 to 8 hours. 5. Precautions related to driving. No driving if feeling sleepiness. 6. I will maintain all necessary prescription for PAP supplies including mask, tube, filters. 7. Watching weight. 8. Follow-up visit in 6 months or earlier if patient has any problems. Thank you very much for allowing me to participate in the management of your patient. Sincerely, Dayne Stoddard MD, PhD, FAASM Diplomat of [place] [employer] Sleep Medicine [employer] [place] [employer] Consulting Director of [facility] [place] MMODL / IJN: [id number] /
== END | disposition home or self-care (01) ==
LOC: SLEEP 11:24
PROVIDERS: ATTEND Internal Medicine
DX: G47.33 Obstructive sleep apnea (adult) (pediatric) (principal); E66.9 Obesity, unspecified; J45.909 Unspecified asthma, uncomplicated; I10 Essential (primary) hypertension; K21.9 Gastro-esophageal reflux disease without esophagitis; Z86.79 Personal history of other diseases of the circulatory system; Z90.49 Acquired absence of other specified parts of digestive tract; Z98.890 Other specified postprocedural states

== ENCOUNTER → 2022-05-15 | Outpatient (CLI) | payer MEDICARE ==
[2022-05-15 18:30] LABS: African American GFR (CKD) 64.4 (60.0-200.0); Anion Gap 12.2 mmol/L (10.00-18.00); BUN/Creat Ratio 13.94 Ratio (12.00-20.00); Blood Urea Nitrogen 13.2 mg/dL (9.0-27.0); Calcium 9.1 mg/dL (8.7-10.3); Carbon Dioxide 26.1 mmol/L (20.0-27.5); Magnesium 2.1 mg/dL (1.5-2.4); Non-African American GFR(CKD) 55.6 (60.0-200.0); Potassium 4.6 mmol/L (3.5-5.5)
== END | disposition home or self-care (01) ==
LOC: LABWHC1 13:53
PROVIDERS: ATTEND Internal Medicine Clinical Cardiac Electrophysiology
DX: I50.9 Heart failure, unspecified (principal)
CPT/HCPCS: 36415; 80048; 83735

== ENCOUNTER → 2022-07-31 | Outpatient (CLI) | payer MEDICARE ==
[2022-08-01 01:12] LABS: African American GFR (CKD) 92.4 (60.0-200.0); Anion Gap 8.9 mmol/L (10.00-18.00); BUN/Creat Ratio 14.79 Ratio (12.00-20.00); Blood Urea Nitrogen 10.4 mg/dL (9.0-27.0); Calcium 9.3 mg/dL (8.7-10.3); Carbon Dioxide 28.8 mmol/L (20.0-27.5); Magnesium 2.1 mg/dL (1.5-2.4); Non-African American GFR(CKD) 79.7 (60.0-200.0)
== END | disposition home or self-care (01) ==
LOC: LABWHC1 15:51
PROVIDERS: ATTEND Internal Medicine Interventional Cardiology
DX: I10 Essential (primary) hypertension (principal)
CPT/HCPCS: 36415; 80048; 83735

== ENCOUNTER 2022-09-26 20:55 | Emergency (ER) | payer MEDICARE ==
[2022-09-26] MEDS ORDERED: ACETAMINOPHEN TAB 500 MG TAB PO STA (21:43)
--- NOTE | 2022-09-26 21:46 | ED ---
General Adult HPI - General Chief complaint: Fall Stated complaint: Weakness, Fall Time Seen by Provider: 09/26/22 20:57 Source: patient, EMS, RN notes reviewed Mode of arrival: EMS Limitations: no limitations - History of Present Illness Initial comments: Patient is an 82-year-old female presenting to the emergency room via EMS from assisted living after her children found her lying on the floor at home. She reports not remembering the events surrounding her fall but is complaining of generalized weakness. She is a poor historian however is alert and orientated 3 on exam. She is unsure if she injured any body parts when she fell and is unsure of head trauma but denies any head or neck pain, extremity pain or changes in chronic back pain. Overall at this time with the exception of complaining of generalized weakness she denies any complaints or concerns. She denies any chest pain, shortness of breath, abdominal pain, nausea, vomiting, focal neurological deficits, fevers or chills. She has a past medical history significant for asthma, A. fib, CHF, GERD, hypertension and sleep apnea. - Related Data Home Medications Medication Instructions Recorded Confirmed Levocetirizine Dihydrochloride 5 mg PO HS 06/07/17 09/26/22 Montelukast [Singulair] 10 mg PO HS 06/07/17 09/26/22 Omeprazole [PriLOSEC] 40 mg PO DAILY 06/07/17 09/26/22 Aspirin EC [Ecotrin Low Dose] 81 mg PO HS 10/10/19 09/26/22 Budesonide [Pulmicort] 0.5 mg INHALATION RT-BID 10/10/19 09/26/22 Diclofenac Sodium Gel [Voltaren 2 - 4 gm TOPICAL BID PRN 10/10/19 09/26/22 Gel] Latanoprost [Xalatan 0.005%] 1 drop BOTH EYES HS 10/10/19 09/26/22 Albuterol Inhaler [Ventolin Hfa 2 puff INHALATION RT-QID PRN 09/19/21 09/26/22 Inhaler] Dicyclomine [Bentyl] 20 mg PO TID 09/19/21 09/26/22 Furosemide [Lasix] 40 mg PO Q48H 09/19/21 09/26/22 HYDROcodone/APAP 5-325MG [[place] 1 tab PO HS 09/19/21 09/26/22 5-325] Isosorbide Mononitrate ER [Imdur] 30 mg PO DAILY 09/19/21 09/26/22 Metoclopramide [Reglan] 5 mg PO QID PRN 09/19/21 09/26/22 Sacubitril/Valsartan [Entresto 24 1 tab PO DIRECTED 09/19/21 09/26/22 mg-26 mg Tablet] carvediloL [Coreg] 6.25 mg PO BID 09/19/21 09/26/22 Nitroglycerin Sl Tabs [Nitrostat] 0.4 mg SL Q5M PRN 09/26/22 09/26/22 Oxybutynin Xl [Ditropan XL] 5 mg PO DAILY 09/26/22 09/26/22 Allergies Allergy/AdvReac Type Severity Reaction Status Date / Time ibuprofen [From Motrin] Allergy Unknown Abdominal Verified 09/26/22 22:36 Pain metoprolol Allergy Unknown Hallucinati Verified 09/26/22 22:36 ons Penicillins Allergy Unknown Rash/Hives Verified 09/26/22 22:36 Sulfa (Sulfonamide Allergy Unknown Rash/Hives Verified 09/26/22 22:36 Antibiotics) midazolam [From Versed] Allergy Nausea & Verified 09/26/22 22:36 Vomiting nebivolol [From Bystolic] AdvReac Unknown Hallucinati Verified 09/26/22 22:36 ons fentanyl AdvReac Nausea & Verified 09/26/22 22:36 Vomiting morphine AdvReac Nausea & Verified 09/26/22 22:36 Vomiting Review of Systems ROS Statement: Those systems with pertinent positive or pertinent negative responses have been documented in the HPI. ROS Other: All systems not noted in ROS Statement are negative. Past Medical History Past Medical History: Atrial Fibrillation, Asthma, Heart Failure, GERD/Reflux, Hypertension, Sleep Apnea/CPAP/BIPAP Additional Past Medical History / Comment(s): IBS, autoimmune disease (unsure of disease, needed lung biopsy to diagnose and biopsy was not done), uses CPAP at home. History of Any Multi-Drug Resistant Organisms: None Reported Past Surgical History: Appendectomy, Cholecystectomy, Heart Catheterization, Hernia Repair, Hysterectomy, Tonsillectomy Additional Past Surgical History / Comment(s): varicose vein stripping Past Anesthesia/Blood Transfusion Reactions: Postoperative Nausea & Vomiting (PONV) Past Psychological History: No Psychological Hx Reported Smoking Status: Former smoker Past Alcohol Use History: Daily Past Drug Use History: None Reported - Past Family History Mother Family Medical History: Congestive Heart Failure (CHF) Father Additional Family Medical History / Comment(s): of aneurysm. General Exam - General Exam Comments Initial Comments: GENERAL: No acute distress, well developed, well nourished. HEENT: Normocephalic, atraumatic. Pupils equal, round, reactive to light. Moist mucous membranes. Full range of motion of neck. LUNGS: Slightly diminished otherwise clear to auscultation, no adventitious sounds, no use of accessory muscles. Occasional nonproductive cough. HEART: Regular rate and rhythm with systolic murmur; no rub or gallop. ABDOMEN: Normal bowel sounds. Soft, non-tender, non-distended. DERMATOLOGIC: Skin intact, without rashes or lesions noted. EXTREMITIES: No edema. No tenderness. Moves all extremities. NEUROLOGIC: Slow but appropriate responses. Alert & oriented x 3. CN II-XII grossly intact. No focal neurological deficits on exam noted PSYCHIATRIC: Normal affect and behavior. Course Vital Signs 09/26/22 09/26/22 09/26/22 20:58 22:50 23:59 Temperature 100.2 F H 99.9 F H 98.6 F Pulse Rate 77 73 71 Respiratory 18 16 17 Rate Blood Pressure 122/55 137/68 116/58 O2 Sat by Pulse 99 95 95 Oximetry 09/27/22 00:01 Temperature Pulse Rate 66 Respiratory 16 Rate Blood Pressure 121/61 O2 Sat by Pulse 98 Oximetry Medical Decision Making - Medical Decision Making Was pt. sent in by a medical professional or institution? @ No Did you speak to anyone other than the patient for history? @ No Did you review nursing and triage notes? @ Yes reviewed; symptoms consistent with nursing and triage note. Were old charts reviewed? @ -Home medication record and EKG Differential Diagnosis? @ -Differential Weakness: Hypoglycemia, shock, sepsis, hyponatremia, anemia, infection, WI, ETOH, adverse medicine reaction, overdose, stroke, this is not meant to be an all-inclusive list. EKG interpreted by me (3pts min.)? @ -Sinus rhythm with left bundle branch block, ventricular rate 66 bpm, UT interval 168 ms, QRS duration 175 ms, QT/QTC 456/470 ms, PRT axes 58, 56, 26. X-rays interpreted by me (1pt min.)? @ -Chest x-ray 2 view right mid to lower lobe obesity. No pleural effusion or pneumothorax. Cardiomegaly noted CT interpreted by me (1pt min.)? @ -CT of the brain and cervical spine shows no bleed, mass or shift. No cervical fracture or dislocation. Nonspecific white matter changes and degenerative disc disease noted. U/S interpreted by me (1pt. min.)? @ -None What testing was considered but not performed? (CT, X-rays, U/S, labs)? Why? @-None What meds were considered but not given? Why? @ -Antibiotics were considered in the setting of obesity on chest x-ray however in the absence of leukocytosis antibiotics deferred at this time. Did you discuss the management of the patient with other professionals? @ - No Did you reconcile home meds? @ - No Was smoking cessation discussed for >3mins.? @ -Not applicable Was critical care preformed (if so, how long)? @ - No Were there social determinants of health that impacted care today? How? (Homelessness, low income, unemployed, alcoholism, drug addiction, transportat ion, low edu. Level, literacy, decrease access to med. care, penitentiary, rehab)? @ -No Was there de-escalation of care discussed even if they declined? (Discuss DNR or withdrawal of care, Hospice)? @ -No What co-morbidities impacted this encounter? (DM, HTN, Smoking, COPD, CAD, Cancer, CVA, Hep., AIDS, mental health diagnosis, sleep apnea, morbid obesity)? @ -COPD and asthma Was patient admitted / discharged? @ -82-year-old female presents to the emergency room via EMS from home after being found on the ground after a an unwitnessed fall with poor recall of fall events and complaints of generalized weakness. No focal neurological deficits on exam. Noted slow but alert responses. Will begin workup for weakness. Low-grade temperature also noted on intake will give 1 g of Tylenol for fever and check for Covid flu and pneumonia via swab. Will obtain EKG, CT of the brain and cervical spine given unknown fall events on aspirin, chest x-ray, CBC, CMP, coags, lactic acid, troponin and magnesium. EKG demonstrates sinus rhythm with a bundle branch block.Chest x-ray shows obesity in the right middle lobe advise correlation for possible pneumonia however in the absence of leukocytosis will await viral swabs prior to proceeding with antibiotic therapy. CT of the brain and cervical spine without acute abnormalities as indicated above. CBC unremarkable except low lymphocytes at 0.5 and slow, coags stable, CMP normal except for glucose of 112. Lactic acid normal at 1.0 Covid positive on swab. Influenza and RSV negative. Results discussed with patient and family at bedside. Unable to provide urine specimen will provide a urinalysis cup to provide sample to primary. For provider for further evaluation of possible UTI however symptomatology likely secondary to Covid. Return parameters to the emergency room reviewed. Will discharge home in stable condition with symptomatic management for COVID. Undiagnosed new problem with uncertain prognosis? @ - None Drug Therapy requiring intensive monitoring for toxicity (Heparin, Nitro, Insulin, Cardizem)? @ -No Were any procedures done? @ -No Diagnosis/symptom? @ -COVID Acute, or Chronic, or Acute on Chronic? @ -Acute Uncomplicated (without systemic symptoms) or Complicated (systemic symptoms)? @ -Complicated with weakness and low-grade temperature Side effects of treatment? @ -None Exacerbation, Progression, or Severe Exacerbation] @ -No Poses a threat to life or bodily function? @ -No Case discussed with Dr. Perez. - Lab Data Result diagrams: 09/26/22 21:40 09/26/22 22:44 Lab Results 09/26/22 09/26/22 09/26/22 Range/Units 21:40 21:40 22:44 WBC 8.0 (3.8-10.6) k/uL RBC 4.12 (3.80-5.40) m/uL Hgb 13.0 (11.4-16.0) gm/dL Hct 37.6 (34.0-46.0) % MCV 91.1 (80.0-100.0) fL MCH 31.5 (25.0-35.0) pg MCHC 34.5 (31.0-37.0) g/dL RDW 13.0 (11.5-15.5) % Plt Count 180 (150-450) k/uL MPV 9.1 Neutrophils % 83 % Lymphocytes % 6 % Monocytes % 8 % Eosinophils % 1 % Basophils % 1 % Neutrophils # 6.6 (1.3-7.7) k/uL Lymphocytes # 0.5 L (1.0-4.8) k/uL Monocytes # 0.7 (0-1.0) k/uL Eosinophils # 0.1 (0-0.7) k/uL Basophils # 0.0 (0-0.2) k/uL PT 10.1 (9.0-12.0) sec INR 0.9 (<1.2) APTT 18.4 L (22.0-30.0) sec Sodium 137 (137-145) mmol/L Potassium 3.7 (3.5-5.1) mmol/L Chloride 103 (98-107) mmol/L Carbon Dioxide 27 (22-30) mmol/L Anion Gap 7 mmol/L BUN 10 (7-17) mg/dL Creatinine 0.64 (0.52-1.04) mg/dL Est GFR (CKD-EPI)AfAm >90 (>60 ml/min/1.73 sqM) Est GFR (CKD-EPI)NonAf 83 (>60 ml/min/1.73 sqM) Glucose 112 H (74-99) mg/dL Plasma Lactic Acid Jose (0.7-2.0) mmol/L Calcium 8.9 (8.4-10.2) mg/dL Total Bilirubin 0.6 (0.2-1.3) mg/dL AST 20 (14-36) U/L ALT 13 (4-34) U/L Alkaline Phosphatase 70 (38-126) U/L Troponin I (0.000-0.034) ng/mL Total Protein 6.4 (6.3-8.2) g/dL Albumin 4.0 (3.5-5.0) g/dL Influenza Type A (PCR) (Not Detectd) Influenza Type B (PCR) (Not Detectd) RSV (PCR) (Not Detectd) SARS-CoV-2 (PCR) (Not Detectd) 09/26/22 09/26/22 09/26/22 Range/Units 22:44 22:44 22:46 WBC (3.8-10.6) k/uL RBC (3.80-5.40) m/uL Hgb (11.4-16.0) gm/dL Hct (34.0-46.0) % MCV (80.0-100.0) fL MCH (25.0-35.0) pg MCHC (31.0-37.0) g/dL RDW (11.5-15.5) % Plt Count (150-450) k/uL MPV Neutrophils % % Lymphocytes % % Monocytes % % Eosinophils % % Basophils % % Neutrophils # (1.3-7.7) k/uL Lymphocytes # (1.0-4.8) k/uL Monocytes # (0-1.0) k/uL Eosinophils # (0-0.7) k/uL Basophils # (0-0.2) k/uL PT (9.0-12.0) sec INR (<1.2) APTT (22.0-30.0) sec Sodium (137-145) mmol/L Potassium (3.5-5.1) mmol/L Chloride (98-107) mmol/L Carbon Dioxide (22-30) mmol/L Anion Gap mmol/L BUN (7-17) mg/dL Creatinine (0.52-1.04) mg/dL Est GFR (CKD-EPI)AfAm (>60 ml/min/1.73 sqM) Est GFR (CKD-EPI)NonAf (>60 ml/min/1.73 sqM) Glucose (74-99) mg/dL Plasma Lactic Acid Jose 1.0 (0.7-2.0) mmol/L Calcium (8.4-10.2) mg/dL Total Bilirubin (0.2-1.3) mg/dL AST (14-36) U/L ALT (4-34) U/L Alkaline Phosphatase (38-126) U/L Troponin I <0.012 (0.000-0.034) ng/mL Total Protein (6.3-8.2) g/dL Albumin (3.5-5.0) g/dL Influenza Type A (PCR) Not Detected (Not Detectd) Influenza Type B (PCR) Not Detected (Not Detectd) RSV (PCR) Not Detected (Not Detectd) SARS-CoV-2 (PCR) Detected A (Not Detectd) - Radiology Data Radiology results: report reviewed, image reviewed Disposition Clinical Impression: COVID, Fall Disposition: HOME SELF-CARE Condition: Stable Instructions (If sedation given, give patient instructions): Fall Prevention for Older Adults (ED), COVID-19 (Coronavirus Disease 2019) (ED) Additional Instructions: Please quarantine for 5 days after testing positive and restart quarantine if symptoms worsen. Please follow-up with your primary care provider. Please utilize Tylenol as needed for fevers and pain. Taking vitamin C, Zinc, vitamin D 50 mcg, and melatonin may help symptom recovery. Please return to the Emergency Department if symptoms worsen or any other concerns. Is patient prescribed a controlled substance at d/c from ED?: No Referrals: Ko Matthews MD [Primary Care Provider] - 1-2 days Time of Disposition: 00:06
[2022-09-26 22:04] LABS: Basophils % (A) 1 %; Eosinophils # (A) 0.1 k/uL (0-0.7); Eosinophils % (A) 1 %; HCT 37.6 % (34.0-46.0); Lymphocytes # (A) 0.5 k/uL (1.0-4.8); Lymphocytes % (A) 6 %; MCH 31.5 pg (25.0-35.0); MCHC 34.5 g/dL (31.0-37.0); MCV 91.1 fL (80.0-100.0); Mean Platelet Volume 9.1; Monocytes # (A) 0.7 k/uL (0-1.0); Monocytes % (A) 8 %; Neutrophils # (A) 6.6 k/uL (1.3-7.7); Neutrophils % (A) 83 %; Platelet Count 180 k/uL (150-450); RBC 4.12 m/uL (3.80-5.40)
--- NOTE | 2022-09-26 22:08 | XR ---
EXAMINATION TYPE: XR chest 2V DATE OF EXAM: 09/26/2022 10:00 PM COMPARISON: Chest radiographs from 09/19/2021 TECHNIQUE: XR chest 2V Frontal and lateral views of the chest. CLINICAL INDICATION:Female, 82 years old with history of weakness, fever; FINDINGS: Lungs/Pleura: Increased airspace opacities in the right lung base compared to prior's. There is no ev idence of pleural effusion, or pneumothorax. Pulmonary vascularity: Unremarkable. Heart/mediastinum: Cardiomediastinal silhouette is enlarged and stable. Musculoskeletal: No acute osseous pathology. IMPRESSION: Right middle lobe airspace opacities appear more prominent compared to prior correlate for developing pneumonia. Consider further evaluation of the lungs with CT.
--- NOTE | 2022-09-26 22:11 | CT ---
EXAMINATION TYPE: CT brain cspine wo con CT DLP: 1528.8 mGycm, Automated exposure control for dose reduction was used. DATE OF EXAM: 09/26/2022 9:58 PM COMPARISON: 09/19/2021 CLINICAL INDICATION:Female, 82 years old with history of fall weakness; PAIN AFTER RECENT FALLS TECHNIQUE: Brain: Multiple axial CT images of the brain were obtained without IV contrast. Cspine: Axial CT images from the skull base to the inferior aspect of T2 we obtained without intraven ous contrast. Coronal and sagittal reformatted images were also reviewed. FINDINGS: Brain: Extra-axial spaces: No abnormal extra-axial fluid collections. Ventricular system: Dilatation in proportion to cerebral atrophy. Cerebral parenchyma: Cerebral atrophy. No acute intraparenchymal hemorrhage or mass effect. The jensen -white junction is well differentiated. Scattered hypoattenuating areas are seen within the white mat ter. Cerebellum: Unremarkable. Mass effect: No evidence of midline shift. Intracranial vasculature: Atherosclerotic calcifications of the intracranial vessels. Soft tissues: Normal. Calvarium/osseous structures: No depressed skull fracture. Paranasal sinuses and mastoid air cells: Clear. Visualized orbits: Bilateral aphakia Cervical spine: Fracture: None. Osseous structures: Multilevel degenerative disc disease changes with endplate spurring and disc oste ophyte complex's. Endplate sclerosis is also present throughout the mid cervical spine. Vertebral alignment: Within normal limits. Spinal canal/Neural Foramina: Disc osteophyte complexes at C4-C6 with at least mild spinal canal sten osis. No evidence for significant neural foraminal stenosis. Neck soft tissues: Prevertebral soft tissues are within normal limits. Other: The airway is patent. The lung apices are clear. IMPRESSION: 1. No acute intracranial process. 2. Nonspecific white matter changes, likely secondary to chronic small vessel ischemic disease. 3. No evidence of cervical spine fracture. 4. Mild multilevel degenerative disc disease.
[2022-09-26 22:23] LABS: INR 0.9 (<1.2); Prothrombin Time 10.1 sec (9.0-12.0)
[2022-09-26 22:28] LABS: Partial Thromboplastin Time 18.4 sec (22.0-30.0)
[2022-09-26 23:04] LABS: ALT 13 U/L (4-34); AST 20 U/L (14-36); African American GFR (CKD) >90 (>60 ml/min/1.73 sqM); Alkaline Phosphatase 70 U/L (38-126); Anion Gap 7 mmol/L; Blood Urea Nitrogen 10 mg/dL (7-17); Calcium 8.9 mg/dL (8.4-10.2); Carbon Dioxide 27 mmol/L (22-30); Chloride 103 mmol/L (98-107); Glucose 112 mg/dL (74-99); Non-African American GFR(CKD) 83 (>60 ml/min/1.73 sqM); Potassium 3.7 mmol/L (3.5-5.1); Sodium 137 mmol/L (137-145); Total Bilirubin 0.6 mg/dL (0.2-1.3); Total Protein 6.4 g/dL (6.3-8.2)
[2022-09-26 23:59] VITALS: TEMP 98.6
[2022-09-27 00:02] VITALS: BP 121/61; PULSE 66; RESP 16
== END 2022-09-27 00:19 | disposition home or self-care (01) ==
LOC: EC 20:55
DX: U07.1 COVID-19 (principal); I11.0 Hypertensive heart disease with heart failure; I48.91 Unspecified atrial fibrillation; J45.909 Unspecified asthma, uncomplicated; K21.9 Gastro-esophageal reflux disease without esophagitis; I50.9 Heart failure, unspecified; G47.30 Sleep apnea, unspecified; Z87.891 Personal history of nicotine dependence; Z79.82 Long term (current) use of aspirin; Z79.899 Other long term (current) drug therapy; Z88.0 Allergy status to penicillin; Z88.2 Allergy status to sulfonamides; Z88.6 Allergy status to analgesic agent; Z88.4 Allergy status to anesthetic agent; Z88.8 Allergy status to other drugs, medicaments and biological substances; W19.XXXA Unspecified fall, initial encounter
CPT/HCPCS: 36415; 70450; 71046; 72125; 80053; 83605; 84484; 85025; 85610; 85730; 87636; 93005; 99285

== ENCOUNTER → 2022-12-18 | Outpatient (CLI) | payer MEDICARE ==
--- NOTE | 2022-12-19 08:38 | MM ---
Reason for Exam: Screening (asymptomatic). Last mammogram was performed 1 year(s) and 1 month(s) ago. Patient History: Menarche at age 10. First Full-Term at age 22. Left ovary removed at age 49. Right ovary removed at age 49. Hysterectomy at age 49. Postmenopausal. Other cancer, age 70. Patient used Estrogen for 12 years. Maternal cousin had breast cancer, age 50. Maternal cousin had breast cancer, age 55. Risk Values: Apple 5 year model risk: 1.5%. NCI Lifetime model risk: 1.8%. Prior Study Comparison: 09/12/2015 Bilateral Screening Mammogram, [facility]. 09/17/2016 Bilateral Screening Mammogram, [facility]. 11/06/2017 Bilateral Screening Mammogram, [facility]. 11/28/2018 Bilateral Screening Mammogram, [facility]. 11/15/2021 Bilateral Screening Mammogram, [facility]. Tissue Density: There are scattered fibroglandular densities. Findings: Analyzed By CAD. Benign-appearing vascular along with punctate calcifications throughout the bilateral breasts are redemonstrated. Benign-appearing right axillary lymph nodes noted on current study. There is no suspicious new group of microcalcifications or new suspicious mass in either breast. Overall Assessment: Benign, BI-RAD 2 Management: Screening Mammogram of both breasts in 1 year. A clinical breast exam by your physician is recommended on an annual basis and results should be correlated with mammographic findings. Electronically signed and approved by: Horacio Fonseca M.D.
== END | disposition home or self-care (01) ==
LOC: RADMAMWWP 12:59
PROVIDERS: ATTEND Family Medicine
DX: Z12.31 Encounter for screening mammogram for malignant neoplasm of breast (principal); Z78.0 Asymptomatic menopausal state; Z80.3 Family history of malignant neoplasm of breast
CPT/HCPCS: 77063; 77067

== ENCOUNTER → 2023-03-04 | Outpatient (CLI) | payer MEDICARE ==
[2023-03-04 19:58] LABS: Basophils # (A) 0.03 X 10*3/uL; Basophils % (A) 0.5 %; Eosinophils # (A) 0.01 X 10*3/uL; Eosinophils % (A) 0.2 %; HCT 38.3 %; HGB 12.1 d/dL; Lymphocytes # (A) 1.76 X 10*3/uL; Lymphocytes % (A) 26.6 %; MCH 28.1 pg; MCHC 31.6 d/dL; MCV 89.1 FL; Mean Platelet Volume 11.2 FL; Monocytes # (A) 0.64 X 10*3/uL; Monocytes % (A) 9.7 %; NRBC Per 100 WBC 0 X 10*3/uL; Neutrophils # (A) 4.13 X 10*3/uL; Neutrophils % (A) 62.4 %; Platelet Count 203 X 10*3/uL; RDW 15.3 %; WBC 6.61 X 10*3/uL
[2023-03-05 04:34] LABS: ALT 12 U/L; AST 15 U/L; Albumin 4.5 d/dL; Albumin/Globulin Ratio 2.25 Ratio; Alkaline Phosphatase 73 U/L; BUN/Creat Ratio 28.43 Ratio; Blood Urea Nitrogen 19.9 mg/dL; Calcium 9.5 mg/dL; Carbon Dioxide 24.2 mmol/L; Chloride 101 mmol/L; Glucose 91 mg/dL; Potassium 4.5 mmol/L; Sodium 138 mmol/L; Total Bilirubin 0.5 mg/dL; Total Protein 6.5 d/dL
== END | disposition home or self-care (01) ==
LOC: LABWHC1 15:00
PROVIDERS: ATTEND Family Medicine
DX: L65.9 Nonscarring hair loss, unspecified (principal)
CPT/HCPCS: 36415; 80053; 84439; 84443; 85025

== ENCOUNTER 2023-05-20 15:11 | Emergency (ER) | payer MEDICARE ==
[2023-05-20 15:17] VITALS: TEMP 98
[2023-05-20] MEDS ORDERED: HYDROmorphone 0.5 MG/0.5 ML SYRINGE IVP STA (15:39)
--- NOTE | 2023-05-20 15:42 | ED ---
General Adult HPI - General Chief complaint: Shortness of Breath Stated complaint: SOB Time Seen by Provider: 05/20/23 15:21 Source: patient, RN notes reviewed, old records reviewed (CT reports from previous visit) Mode of arrival: wheelchair Limitations: physical limitation - History of Present Illness Initial comments: Patient is a pleasant 83-year-old female presenting to emergency department with concerns for chest discomfort. Patient did have a fall 3 days ago. Patient did land on her face and chest. No blood thinners. Patient has been having some chest discomfort since that time. Discomfort has increased today. Patient states it hurts more to 50 red return. Patient states she may be a little short of breath as well. No cough. No fever. - Related Data Home Medications Medication Instructions Recorded Confirmed Levocetirizine Dihydrochloride 5 mg PO HS 06/07/17 05/20/23 Montelukast [Singulair] 10 mg PO HS 06/07/17 05/20/23 Omeprazole [PriLOSEC] 40 mg PO DAILY 06/07/17 05/20/23 Latanoprost [Xalatan 0.005%] 1 drop BOTH EYES HS 10/10/19 05/20/23 Albuterol Inhaler [Ventolin Hfa 2 puff INHALATION RT-QID PRN 09/19/21 05/20/23 Inhaler] Dicyclomine [Bentyl] 20 mg PO QID PRN 09/19/21 05/20/23 HYDROcodone/APAP 5-325MG [[place] 1 tab PO BID PRN 09/19/21 05/20/23 5-325] Isosorbide Mononitrate ER [Imdur] 30 mg PO DAILY 09/19/21 05/20/23 carvediloL [Coreg] 6.25 mg PO BID 09/19/21 05/20/23 Nitroglycerin Sl Tabs [Nitrostat] 0.4 mg SL Q5M PRN 09/26/22 05/20/23 Oxybutynin Xl [Ditropan XL] 5 mg PO DAILY 09/26/22 05/20/23 Cholestyramine/Aspartame [Questran 4 gm PO DAILY PRN 05/20/23 05/20/23 Light Powder] Fluocinonide 0.05% [Lidex 0.05% 1 applic TOPICAL BID PRN 05/20/23 05/20/23 cream] Furosemide [Lasix] 20 mg PO Q48H 05/20/23 05/20/23 Allergies Allergy/AdvReac Type Severity Reaction Status Date / Time ibuprofen [From Motrin] Allergy Unknown Abdominal Verified 05/20/23 16:36 Pain metoprolol Allergy Unknown Hallucinati Verified 05/20/23 16:36 ons Penicillins Allergy Unknown Rash/Hives Verified 05/20/23 16:36 Sulfa (Sulfonamide Allergy Unknown Rash/Hives Verified 05/20/23 16:36 Antibiotics) midazolam [From Versed] Allergy Nausea & Verified 05/20/23 16:36 Vomiting nebivolol [From Bystolic] AdvReac Unknown Hallucinati Verified 05/20/23 16:36 ons fentanyl AdvReac Nausea & Verified 05/20/23 16:36 Vomiting morphine AdvReac Nausea & Verified 05/20/23 16:36 Vomiting Review of Systems ROS Statement: Those systems with pertinent positive or pertinent negative responses have been documented in the HPI. ROS Other: All systems not noted in ROS Statement are negative. Constitutional: Denies: fever Eyes: Denies: eye pain ENT: Denies: ear pain Respiratory: Reports: as per HPI, dyspnea Cardiovascular: Reports: as per HPI, chest pain Endocrine: Denies: fatigue Gastrointestinal: Denies: abdominal pain Past Medical History Past Medical History: Atrial Fibrillation, Asthma, Heart Failure, GERD/Reflux, Hypertension, Sleep Apnea/CPAP/BIPAP Additional Past Medical History / Comment(s): IBS, autoimmune disease (unsure of disease, needed lung biopsy to diagnose and biopsy was not done), uses CPAP at home. History of Any Multi-Drug Resistant Organisms: None Reported Past Surgical History: Appendectomy, Cholecystectomy, Heart Catheterization, Hernia Repair, Hysterectomy, Tonsillectomy Additional Past Surgical History / Comment(s): varicose vein stripping Past Anesthesia/Blood Transfusion Reactions: Postoperative Nausea & Vomiting (PONV) Past Psychological History: No Psychological Hx Reported Smoking Status: Former smoker Past Alcohol Use History: Daily Past Drug Use History: None Reported - Past Family History Mother Family Medical History: Congestive Heart Failure (CHF) Father Additional Family Medical History / Comment(s): of aneurysm. General Exam Limitations: physical limitation General appearance: alert, in no apparent distress Head exam: Present: other (Ecchymosis right side of face) Eye exam: Present: normal appearance Neck exam: Present: normal inspection. Absent: tenderness Respiratory exam: Present: normal lung sounds bilaterally, chest wall tenderness (Mild left anterior chest wall) Cardiovascular Exam: Present: regular rate, normal rhythm GI/Abdominal exam: Present: soft, tenderness (Mild/moderate left upper jovita drant). Absent: distended Extremities exam: Present: normal inspection, full ROM. Absent: tenderness Back exam: Present: normal inspection Neurological exam: Present: alert. Absent: motor sensory deficit Psychiatric exam: Present: normal affect, normal mood Skin exam: Present: normal color Course Vital Signs 05/20/23 05/20/23 05/20/23 15:13 16:12 17:52 Temperature 98.0 F Pulse Rate 63 65 58 L Respiratory 30 H 24 20 Rate Blood Pressure 170/85 167/87 156/67 O2 Sat by Pulse 98 96 99 Oximetry EKG Findings - EKG Results: EKG: interpreted by NELL ((Branch block. Nonspecific ST-T. Previous EKG reviewed dated [id number]), sinus rhythm, normal axis Medical Decision Making - Medical Decision Making Was pt. sent in by a medical professional or institution (, PA, GUEST RELATIONS MANAGER, urgent care, hospital, or long-term...) When possible be specific @ -No Did you speak to anyone other than the patient for history (EMS, parent, family, police, friend...)? What history was obtained from this source @ -Family is present and helps provide history including recent injury Did you review nursing and triage notes (agree or disagree)? Why? @ -I reviewed and agree with nursing and triage notes Were old charts reviewed (outside hosp., previous admission, EMS record, old EKG, old radiological studies, urgent care reports/EKG's, long-term records)? Report findings @ -No old charts were reviewed Differential Diagnosis (chest pain, altered mental status, abdominal pain women, abdominal pain men, vaginal bleeding, weakness, fever, dyspnea, syncope, headache, dizziness, GI bleed, back pain, seizure, CVA, palpatations, mental health, musculoskeletal)? @ -Differential Chest Pain: Stable Angina, Unstable Angina, STEMI, NSTEMI Aortic Dissection, Pneumothorax, Musculoskeletal, Esophageal Spasm GERD, Cholecystitis, Pancreatitis, Zoster, this is not meant to be an all-inclusive list. EKG interpreted by me (3pts min.). @ -As above X-rays interpreted by me (1pt min.). @ -Chest x-ray shows no acute process CT interpreted by me (1pt min.). @ -Report reviewed U/S interpreted by me (1pt. min.). @ -None done What testing was considered but not performed or refused? (CT, X-rays, U/S, labs)? Why? @ -None What meds were considered but not given or refused? Why? @ -None Did you discuss the management of the patient with other professionals (professionals i.e. , PA, GUEST RELATIONS MANAGER, lab, RT, psych nurse, social media editor, wallcovering texturer, teacher, weapons electrical engineering officer, case management director)? Give summary @ -No Was smoking cessation discussed for >3mins.? @ -No Was critical care preformed (if so, how long)? @ -No Were there social determinants of health that impacted care today? How? (Homelessness, low income, unemployed, alcoholism, drug addiction, transportation, low edu. Level, literacy, decrease access to med. care, skilled nursing, rehab)? @ -No Was there de-escalation of care discussed even if they declined (Discuss DNR or withdrawal of care, Hospice)? DNR status @ -No What co-morbidities impacted this encounter? (DM, HTN, Smoking, COPD, CAD, Cancer, CVA, ARF, Chemo, Hep., AIDS, mental health diagnosis, sleep apnea, morbid obesity)? @ -None Was patient admitted / discharged? Hospital course, mention meds given and route, prescriptions, significant lab abnormalities, going to OR and other pertinent info. @ -Patient reevaluated and feels initially that her with pain medications. Low concern for cardiac and troponin was negative. Patient and family updated on results and plan. Patient is comfortable with discharge home. Patient has [place] at home. Undiagnosed new problem with uncertain prognosis? @ -No Drug Therapy requiring intensive monitoring for toxicity (Heparin, Nitro, Insulin, Cardizem)? @ -No Were any procedures done? @ -No Diagnosis/symptom? @ -Chest contusion Acute, or Chronic, or Acute on Chronic? @ -Acute Uncomplicated (without systemic symptoms) or Complicated (systemic symptoms)? @ -default Side effects of treatment? @ -No Exacerbation, Progression, or Severe Exacerbation? @ -No Poses a threat to life or bodily function? How? (Chest pain, [place], [place], pneumonia, PE, COPD, DKA, ARF, appy, cholecystitis, CVA, Diverticulitis, Homicidal, Suicidal, threat to staff... and all critical care pts) @ -No - Lab Data Result diagrams: 05/20/23 16:09 05/20/23 16:09 Lab Results 05/20/23 05/20/23 05/20/23 Range/Units 16:09 16:09 16:09 WBC 5.5 (3.8-10.6) k/uL RBC 3.86 (3.80-5.40) m/uL Hgb 11.7 (11.4-16.0) gm/dL Hct 34.5 (34.0-46.0) % MCV 89.3 (80.0-100.0) fL MCH 30.3 (25.0-35.0) pg MCHC 33.9 (31.0-37.0) g/dL RDW 14.2 (11.5-15.5) % Plt Count 236 (150-450) k/uL MPV 7.9 Neutrophils % 57 % Lymphocytes % 30 % Monocytes % 8 % Eosinophils % 2 % Basophils % 1 % Neutrophils # 3.1 (1.3-7.7) k/uL Lymphocytes # 1.6 (1.0-4.8) k/uL Monocytes # 0.5 (0-1.0) k/uL Eosinophils # 0.1 (0-0.7) k/uL Basophils # 0.0 (0-0.2) k/uL PT 9.9 (9.0-12.0) sec INR 0.9 (<1.2) APTT 22.3 (22.0-30.0) sec Sodium 136 L (137-145) mmol/L Potassium 4.4 (3.5-5.1) mmol/L Chloride 99 (98-107) mmol/L Carbon Dioxide 28 (22-30) mmol/L Anion Gap 9 mmol/L BUN 13 (7-17) mg/dL Creatinine 0.59 (0.52-1.04) mg/dL Est GFR (CKD-EPI)AfAm >90 (>60 ml/min/1.73 sqM) Est GFR (CKD-EPI)NonAf 85 (>60 ml/min/1.73 sqM) Glucose 106 H (74-99) mg/dL Calcium 8.6 (8.4-10.2) mg/dL Total Bilirubin 0.5 (0.2-1.3) mg/dL AST 21 (14-36) U/L ALT 12 (4-34) U/L Alkaline Phosphatase 70 (38-126) U/L Troponin I (0.000-0.034) ng/mL Total Protein 6.8 (6.3-8.2) g/dL Albumin 4.1 (3.5-5.0) g/dL 05/20/23 Range/Units 16:09 WBC (3.8-10.6) k/uL RBC (3.80-5.40) m/uL Hgb (11.4-16.0) gm/dL Hct (34.0-46.0) % MCV (80.0-100.0) fL MCH (25.0-35.0) pg MCHC (31.0-37.0) g/dL RDW (11.5-15.5) % Plt Count (150-450) k/uL MPV Neutrophils % % Lymphocytes % % Monocytes % % Eosinophils % % Basophils % % Neutrophils # (1.3-7.7) k/uL Lymphocytes # (1.0-4.8) k/uL Monocytes # (0-1.0) k/uL Eosinophils # (0-0.7) k/uL Basophils # (0-0.2) k/uL PT (9.0-12.0) sec INR (<1.2) APTT (22.0-30.0) sec Sodium (137-145) mmol/L Potassium (3.5-5.1) mmol/L Chloride (98-107) mmol/L Carbon Dioxide (22-30) mmol/L Anion Gap mmol/L BUN (7-17) mg/dL Creatinine (0.52-1.04) mg/dL Est GFR (CKD-EPI)AfAm (>60 ml/min/1.73 sqM) Est GFR (CKD-EPI)NonAf (>60 ml/min/1.73 sqM) Glucose (74-99) mg/dL Calcium (8.4-10.2) mg/dL Total Bilirubin (0.2-1.3) mg/dL AST (14-36) U/L ALT (4-34) U/L Alkaline Phosphatase (38-126) U/L Troponin I <0.012 (0.000-0.034) ng/mL Total Protein (6.3-8.2) g/dL Albumin (3.5-5.0) g/dL Disposition Clinical Impression: Contusion of chest Disposition: HOME SELF-CARE Condition: Stable Instructions (If sedation given, give patient instructions): Contusion in Adults (ED), Chest Pain (ED), Chest Wall Pain (ED) Additional Instructions: Please do follow-up to primary care physician in the next one or 2 days for recheck. Return for increased pain, difficulty breathing, change or worsening symptoms or any other concerns. Is patient prescribed a controlled substance at d/c from ED?: No Referrals: Ko Matthews MD [Primary Care Provider] - 1-2 days Time of Disposition: 18:14
--- NOTE | 2023-05-20 16:07 | XR ---
EXAMINATION TYPE: XR chest 2V DATE OF EXAM: 05/20/2023 COMPARISON: 09/26/2022 HISTORY: 83 year-old female shortness of breath and right rib pain TECHNIQUE: PA and lateral views FINDINGS: Heart borderline enlarged. Mild interstitial prominence as a chronic appearance. However, there is pa tchy retrocardiac and left basilar opacity. No pleural effusion. IMPRESSION: Patchy retrocardiac/left basilar atelectasis versus early infiltrate.
[2023-05-20 16:18] LABS: Basophils % (A) 1 %; Eosinophils # (A) 0.1 k/uL (0-0.7); Eosinophils % (A) 2 %; HCT 34.5 % (34.0-46.0); HGB 11.7 gm/dL (11.4-16.0); Lymphocytes # (A) 1.6 k/uL (1.0-4.8); Lymphocytes % (A) 30 %; MCH 30.3 pg (25.0-35.0); MCHC 33.9 g/dL (31.0-37.0); MCV 89.3 fL (80.0-100.0); Mean Platelet Volume 7.9; Monocytes # (A) 0.5 k/uL (0-1.0); Monocytes % (A) 8 %; Neutrophils # (A) 3.1 k/uL (1.3-7.7); Neutrophils % (A) 57 %; Platelet Count 236 k/uL (150-450); RBC 3.86 m/uL (3.80-5.40); RDW 14.2 % (11.5-15.5); WBC 5.5 k/uL (3.8-10.6)
[2023-05-20 16:31] LABS: ALT 12 U/L (4-34); AST 21 U/L (14-36); African American GFR (CKD) >90 (>60 ml/min/1.73 sqM); Albumin 4.1 g/dL (3.5-5.0); Alkaline Phosphatase 70 U/L (38-126); Anion Gap 9 mmol/L; Blood Urea Nitrogen 13 mg/dL (7-17); Calcium 8.6 mg/dL (8.4-10.2); Carbon Dioxide 28 mmol/L (22-30); Chloride 99 mmol/L (98-107); Glucose 106 mg/dL (74-99); Non-African American GFR(CKD) 85 (>60 ml/min/1.73 sqM); Potassium 4.4 mmol/L (3.5-5.1); Sodium 136 mmol/L (137-145); Total Bilirubin 0.5 mg/dL (0.2-1.3); Total Protein 6.8 g/dL (6.3-8.2)
[2023-05-20 16:50] LABS: INR 0.9 (<1.2); Partial Thromboplastin Time 22.3 sec (22.0-30.0); Prothrombin Time 9.9 sec (9.0-12.0)
--- NOTE | 2023-05-20 17:54 | CT ---
EXAMINATION TYPE: CT ChestAbdPelvis w con CT DLP: 1297.4 mGycm, Automated exposure control for dose reduction was used. DATE OF EXAM: 05/20/2023 5:14 PM COMPARISON: 11/17/2021 CLINICAL INDICATION:Female, 83 years old with history of trauma; PHH, Fell 3 days ago, c/o chest/rib pain Technique: Multiple axial images of the chest, abdomen, and pelvis were obtained. Two-dimensional cor onal and sagittal reconstructions were obtained. Contrast used:100 mL of Isovue 300 with IV Contrast, Oral contrast used: without Oral Contrast Findings: CHEST: LUNGS/ PLEURA: The lung parenchyma appears unremarkable. AIRWAY: Patent and unremarkable. HEART: Size within normal limits. MEDIASTINUM: No gross evidence of adenopathy. VASCULATURE: No aortic aneurysm. MUSCULOSKELETAL: Mild disc degeneration changes are present throughout the thoracolumbar spine. SOFT TISSUES/LYMPH NODES: Unremarkable. LOWER NECK: No significant findings. ABDOMEN: ABDOMEN LIVER: Unremarkable GALLBLADDER AND BILE DUCTS: The gallbladder is surgically absent. PANCREAS: Unremarkable. SPLEEN: Unremarkable. ADRENAL GLANDS: Unremarkable. KIDNEYS AND URETERS: No evidence of hydronephrosis or renal calculus. The ureters are unremarkable. PELVIS BLADDER: Unremarkable REPRODUCTIVE: The uterus is surgically absent. ABDOMEN & PELVIS STOMACH AND BOWEL: No evidence of bowel obstruction. Scattered colonic diverticula. PERITONEUM: No evidence of pneumoperitoneum or free fluid. VASCULATURE: No evidence of aortic aneurysm. MUSCULOSKELETAL: No acute osseous abnormalities. Mild disc degeneration changes are present throughou t the thoracolumbar spine. Grade 1 anterolisthesis of L4 and L5. Multilevel facet arthropathy is pres ent. LYMPH NODES: No gross evidence for lymphadenopathy. SOFT TISSUE/ABDOMINAL WALL: Unremarkable IMPRESSION: No evidence for acute traumatic injury. No displaced rib fractures visualized. The verteb ral bodies and vertebral column appear intact.
[2023-05-20 17:55] VITALS: PULSE 58
[2023-05-20 18:28] VITALS: RESP 18
[2023-05-20 18:30] VITALS: BP 158/65
== END 2023-05-20 18:30 | disposition home or self-care (01) ==
LOC: EC 15:11
DX: S20.219A Contusion of unspecified front wall of thorax, initial encounter (principal); I48.91 Unspecified atrial fibrillation; J45.909 Unspecified asthma, uncomplicated; I50.9 Heart failure, unspecified; I11.0 Hypertensive heart disease with heart failure; G47.30 Sleep apnea, unspecified; K21.9 Gastro-esophageal reflux disease without esophagitis; Z87.891 Personal history of nicotine dependence; Z79.899 Other long term (current) drug therapy; Z88.6 Allergy status to analgesic agent; Z88.2 Allergy status to sulfonamides; Z88.0 Allergy status to penicillin; Z88.5 Allergy status to narcotic agent; Z88.8 Allergy status to other drugs, medicaments and biological substances; Z88.1 Allergy status to other antibiotic agents; X58.XXXA Exposure to other specified factors, initial encounter
CPT/HCPCS: 99285; 96374; 36415; 93005; 80053; 84484; 85025; 85610; 85730; 71046; 71260; 74177; J1170; Q9967

== ENCOUNTER → 2023-10-16 | Outpatient (CLI) | payer MEDICARE ==
--- NOTE | 2023-10-16 15:48 | XR ---
EXAMINATION TYPE: XR chest 2V DATE OF EXAM: 10/16/2023 COMPARISON: 05/20/2023 TECHNIQUE: PA and lateral views submitted. HISTORY: Cough FINDINGS: The lungs are clear and there is no pneumothorax, pleural effusion, or focal pneumonia. Heart size normal and no overt failure. Osseous structures demonstrate hypertrophic and degenerative changes of the spine. Soft tissue artifact overlying the lower right chest. Hyperinflation suggestive of COPD. B iapical pleural thickening. IMPRESSION: 1. No acute process.
== END | disposition home or self-care (01) ==
LOC: RADXRMAIN 14:50
PROVIDERS: ATTEND Family Medicine
DX: J20.9 Acute bronchitis, unspecified (principal); R05.9 Cough, unspecified
CPT/HCPCS: 71046

== ENCOUNTER → 2024-01-08 | Outpatient (CLI) | payer MEDICARE ==
--- NOTE | 2024-01-09 10:35 | MM ---
Reason for Exam: Screening (asymptomatic). Last mammogram was performed 1 year(s) and 1 month(s) ago. Patient History: Menarche at age 10. First Full-Term at age 22. Left ovary removed at age 49. Right ovary removed at age 49. Hysterectomy at age 49. Postmenopausal. Other cancer, age 70. Patient used Estrogen for 12 years. Maternal cousin had breast cancer, age 50. Maternal cousin had breast cancer, age 55. Risk Values: Apple 5 year model risk: 1.4%. Prior Study Comparison: 11/28/2018 Bilateral Screening Mammogram, [facility]. 11/15/2021 Bilateral Screening Mammogram, [facility]. 12/18/2022 Bilateral MG 3D screening mammo w/cad, [facility]. Tissue Density: There are scattered areas of fibroglandular density. Findings: Analyzed By CAD. There is no suspicious group of microcalcifications or new suspicious mass in either breast. There are benign appearing calcifications. Stable chronic nodularity right breast. Overall Assessment: Benign, BI-RAD 2 Management: Screening Mammogram of both breasts in 1 year. . Patient should continue monthly self-breast exams. A clinical breast exam by your physician is recommended on an annual basis. This exam should not preclude additional follow-up of suspicious palpable abnormalities. Note on Apple scores and lifetime risk: 1. A Apple score greater than 3% is considered moderate risk. If this is the case, consider specialist referral to assess eligibility for a risk reducing agent. 2. If overall lifetime risk for the development of breast cancer is 20% or higher, the patient may qualify for future screening with alternating mammogram and breast MRI. Electronically signed and approved by: Fidel Humphries M.D. Radiologis
--- NOTE | 2024-01-09 13:35 | BD ---
EXAMINATION TYPE: Axial Bone Density DATE OF EXAM: 01/08/2024 CLINICAL HISTORY: 83 years old Female. ICD-10 CODE: Z78.0 ASYMP [place] Height: 58 in Weight: 178 lbs EXAM MEASUREMENTS: Bone mineral densitometry was performed using the Varioptic System. Bone mineral density as measured about the Lumbar spine is: ----- L1-L4(G/cm2): 1.179 T Score Values are as follows: ----- L1: -0.5 ----- L2: -1.4 ----- L3: -0.4 ----- L4: 1.5 ----- L1-L4: 0.0 Z Score Values are as follows: ----- L1: 0.9 ----- L2: 0.0 ----- L3: 1.0 ----- L4: 2.9 ----- L1-L4: 1.4 Bone mineral density has: Decreased -1.7ince study of: 07/23/2016 Bone mineral density about the R hip (g/cm2): 0.968 Bone mineral density about the L hip (g/cm2): 0.932 T Score values are as follows: -----R Neck: -1.7 -----L Neck: -1.7 -----R Total: -0.6 -----L Total: -0.3 Z Score values are as follows: -----R Neck: 0.3 -----L Neck: 0.3 -----R Total: 1.6 -----L Total: 1.3 Bone mineral density has: Decreased -4.6ince study of: 07/23/2016 FRAX%s: The graph provided illustrates a 19.2hance for a major osteoporotic fx and a 4.7chance for th e hips probability for fx in 10 years time. IMPRESSION: Normal (Values between +1 and -1 indicate normal bone mass). Consider repeating this study in 5 year s or sooner if there is some new clinical indication. NOTE: T-SCORE=SD OF THE YOUNG ADULT MEAN.
== END | disposition home or self-care (01) ==
LOC: RADBDWWP 14:56
PROVIDERS: ATTEND Family Medicine
DX: Z12.31 Encounter for screening mammogram for malignant neoplasm of breast (principal); M85.89 Other specified disorders of bone density and structure, multiple sites; Z78.0 Asymptomatic menopausal state; Z80.3 Family history of malignant neoplasm of breast
CPT/HCPCS: 77063; 77067; 77080

== ENCOUNTER → 2024-02-27 | Outpatient (CLI) | payer MEDICARE ==
--- NOTE | 2024-02-27 12:56 | XR ---
EXAMINATION TYPE: XR abdomen 2V DATE OF EXAM: 02/27/2024 COMPARISON: NONE HISTORY: Constipation TECHNIQUE: One view abdominal series FINDINGS: The osseous structures are intact. The bowel gas pattern is nonspecific. Clips gallbladder fossa. Mo derate to bilateral hip arthropathy. Arthropathy of the symphysis pubis. SI joint arthropathy. Degene rative changes of the spine. Retained debris within the colon correlate for constipation. IMPRESSION: 1. Nonspecific abdomen. No evidence of obstruction.
== END | disposition home or self-care (01) ==
LOC: RADXRMAIN 12:30
PROVIDERS: ATTEND Internal Medicine Gastroenterology
DX: K59.00 Constipation, unspecified (principal); R10.9 Unspecified abdominal pain
CPT/HCPCS: 74019

== ENCOUNTER → 2024-09-08 | Outpatient (CLI) | payer MEDICARE ==
--- NOTE | 2024-09-10 02:30 | US ---
EXAMINATION TYPE: US venous doppler duplex LE LT DATE OF EXAM: 09/08/2024 3:34 PM COMPARISON: NONE CLINICAL INDICATION: Female, 84 years old with history of R22.40 LOCALIZED SWELLING, MASS AND LUMP LL E; pain in lower left leg and foot for 1 year, no h/o dvt TECHNIQUE: The lower extremity deep venous system is examined utilizing real time linear array sonog enrique with graded compression, color doppler sonography, and spectral doppler. SIDE PERFORMED: Left FINDINGS: VESSELS IMAGED: Common Femoral Vein Deep Femoral Vein Greater Saphenous Vein * Femoral Vein Popliteal Vein Small Saphenous Vein * Proximal Calf Veins (* superficial vessels) Left Leg: Negative for DVT, Color Doppler imaging shows patency of the vessels. Spectral waveforms a re within normal limits. IMPRESSION: 1. Left lower extremity ultrasound negative for deep venous thrombosis. [facility], , 09/10/2024 2:27 AM
== END | disposition home or self-care (01) ==
LOC: RADUSWWP 15:10
PROVIDERS: ATTEND Family Medicine
DX: R22.42 Localized swelling, mass and lump, left lower limb (principal)

== ENCOUNTER 2024-10-26 16:04 | Emergency (ER) | payer MEDICARE ==
--- NOTE | 2024-10-26 17:30 | ED ---
General Adult HPI - General Chief complaint: Arrhythmia/Palpitations Stated complaint: Heart Palp Time Seen by Provider: 10/26/24 16:09 Source: patient, family, RN notes reviewed Mode of arrival: EMS Limitations: no limitations - History of Present Illness Initial comments: Patient is an 84-year-old female presenting to the emergency department with ananda perales. Patient did not sustain an injury. Patient needed to use her life alert to have somebody help her up. Patient did slip. Patient denies any syncope or loss of consciousness. Patient denies any injury or concerns at this time. Patient states she does have a history of A-fib and did have some palpitations earlier. No chest discomfort. No dyspnea. Patient is symptom-free and requesting discharge. No head injury. - Related Data Home Medications Medication Instructions Recorded Confirmed Levocetirizine Dihydrochloride 5 mg PO HS 06/07/17 05/20/23 Montelukast [Singulair] 10 mg PO HS 06/07/17 05/20/23 Omeprazole [PriLOSEC] 40 mg PO DAILY 06/07/17 05/20/23 Latanoprost [Xalatan 0.005%] 1 drop BOTH EYES HS 10/10/19 05/20/23 Albuterol Inhaler [Ventolin Hfa 2 puff INHALATION RT-QID PRN 09/19/21 05/20/23 Inhaler] Dicyclomine [Bentyl] 20 mg PO QID PRN 09/19/21 05/20/23 HYDROcodone/APAP 5-325MG [[place] 1 tab PO BID PRN 09/19/21 05/20/23 5-325] Isosorbide Mononitrate ER [Imdur] 30 mg PO DAILY 09/19/21 05/20/23 carvediloL [Coreg] 6.25 mg PO BID 09/19/21 05/20/23 Nitroglycerin Sl Tabs [Nitrostat] 0.4 mg SL Q5M PRN 09/26/22 05/20/23 Oxybutynin Xl [Ditropan XL] 5 mg PO DAILY 09/26/22 05/20/23 Cholestyramine/Aspartame [Questran 4 gm PO DAILY PRN 05/20/23 05/20/23 Light Powder] Fluocinonide 0.05% [Lidex 0.05% 1 applic TOPICAL BID PRN 05/20/23 05/20/23 cream] Furosemide [Lasix] 20 mg PO Q48H 05/20/23 05/20/23 Allergies Allergy/AdvReac Type Severity Reaction Status Date / Time ibuprofen [From Motrin] Allergy Unknown Abdominal Verified 10/26/24 16:19 Pain metoprolol Allergy Unknown Hallucinati Verified 10/26/24 16:19 ons Penicillins Allergy Unknown Rash/Hives Verified 10/26/24 16:19 Sulfa (Sulfonamide Allergy Unknown Rash/Hives Verified 10/26/24 16:19 Antibiotics) midazolam [From Versed] Allergy Nausea & Verified 10/26/24 16:19 Vomiting nebivolol [From Bystolic] AdvReac Unknown Hallucinati Verified 10/26/24 16:19 ons fentanyl AdvReac Nausea & Verified 10/26/24 16:19 Vomiting morphine AdvReac Nausea & Verified 10/26/24 16:19 Vomiting Review of Systems ROS Statement: Those systems with pertinent positive or pertinent negative responses have been documented in the HPI. ROS Other: All systems not noted in ROS Statement are negative. Constitutional: Denies: fever Respiratory: Denies: cough, dyspnea Cardiovascular: Reports: as per HPI, palpitations Endocrine: Denies: fatigue Gastrointestinal: Denies: abdominal pain Neurological: Denies: headache, weakness, confusion Past Medical History Past Medical History: Atrial Fibrillation, Asthma, Heart Failure, GERD/Reflux, Hypertension, Sleep Apnea/CPAP/BIPAP Additional Past Medical History / Comment(s): IBS, autoimmune disease (unsure of disease, needed lung biopsy to diagnose and biopsy was not done), uses CPAP at home. History of Any Multi-Drug Resistant Organisms: None Reported Past Surgical History: Appendectomy, Cholecystectomy, Heart Catheterization, Hernia Repair, Hysterectomy, Tonsillectomy Additional Past Surgical History / Comment(s): varicose vein stripping Past Anesthesia/Blood Transfusion Reactions: Postoperative Nausea & Vomiting (PONV) Past Psychological History: No Psychological Hx Reported Smoking Status: Former smoker Past Alcohol Use History: Daily Past Drug Use History: None Reported - Past Family History Mother Family Medical History: Congestive Heart Failure (CHF) Father Additional Family Medical History / Comment(s): of aneurysm. General Exam Limitations: no limitations General appearance: alert, in no apparent distress Head exam: Present: atraumatic Eye exam: Present: normal appearance ENT exam: Present: normal oropharynx Neck exam: Present: normal inspection. Absent: tenderness, meningismus Respiratory exam: Present: normal lung sounds bilaterally Cardiovascular Exam: Present: regular rate, normal rhythm GI/Abdominal exam: Present: soft. Absent: tenderness Extremities exam: Present: normal inspection, full ROM. Absent: tenderness Back exam: Present: normal inspection. Absent: tenderness, vertebral tenderness Neurological exam: Present: alert, CN II-XII intact. Absent: motor sensory deficit Expanded Neurological exam: Present: protecting the airway Speech: Present: fluid speech Cranial nerves: EOM's Intact: Normal Motor strength exam: RUE: 5, LUE: 5, RLE: 5, LLE: 5 Eye Response: (4) open spontaneously Motor Response: (6) obeys commands Verbal Response: (5) oriented Psychiatric exam: Present: normal affect, normal mood Skin exam: Present: normal color Course Vital Signs 10/26/24 10/26/24 10/26/24 16:08 16:11 16:13 Temperature 97.7 F Pulse Rate 62 Pulse Rate [ 68 Sitting Hotel Lobby Concierge] Pulse Rate [ Standing Hotel Lobby Concierge ] Pulse Rate [ 71 Supine Hotel Lobby Concierge] Respiratory 17 18 20 Rate Blood Pressure 99/57 Blood Pressure 161/78 [Left Arm Sitting] Blood Pressure [Left Arm Standing] Blood Pressure 169/78 [Left Arm Supine] O2 Sat by Pulse 98 99 99 Oximetry 10/26/24 16:14 Temperature Pulse Rate Pulse Rate [ Sitting Hotel Lobby Concierge] Pulse Rate [ 71 Standing Hotel Lobby Concierge ] Pulse Rate [ Supine Hotel Lobby Concierge] Respiratory 20 Rate Blood Pressure Blood Pressure [Left Arm Sitting] Blood Pressure 160/73 [Left Arm Standing] Blood Pressure [Left Arm Supine] O2 Sat by Pulse 99 Oximetry EKG Findings - EKG Results: EKG: interpreted by ERMD (Right axis. Left bundle branch block. Nonspecific T waves), sinus rhythm Medical Decision Making - Medical Decision Making Was pt. sent in by a medical professional or institution (, PA, FISH HATCHERY SUPERINTENDENT, urgent care, hospital, or fci...) When possible be specific @ -No Did you speak to anyone other than the patient for history (EMS, parent, family, police, friend...)? What history was obtained from this source @ -Daughter is present and helps provide significant history as patient is a poor historian and hard of Did you review nursing and triage notes (agree or disagree)? Why? @ -I reviewed and agree with nursing and triage notes Were old charts reviewed (outside hosp., previous admission, EMS record, old EKG, old radiological studies, urgent care reports/EKG's, fci records)? Report findings @ -No old charts were reviewed Differential Diagnosis (chest pain, altered mental status, abdominal pain women, abdominal pain men, vaginal bleeding, weakness, fever, dyspnea, syncope, headache, dizziness, GI bleed, back pain, seizure, CVA, palpatations, mental health, musculoskeletal)? @ -Differential Dizziness: Benign paroxysmal positional Vertigo, Meniere's disease, otitis media, acoustic neuroma, vertebrobasilar insufficiency, cerebellar stroke, encephalitis, hypovolemic, arrhythmia, coronary artery syndrome, anemia, this is not meant to be an all-inclusive list EKG interpreted by me (3pts min.). @ -As above X-rays interpreted by me (1pt min.). @ -None done CT interpreted by me (1pt min.). @ -None done U/S interpreted by me (1pt. min.). @ -None done What testing was considered but not performed or refused? (CT, X-rays, U/S, la bs)? Why? @ -Considered blood work and imaging however patient is symptom-free and wants to be What meds were considered but not given or refused? Why? @ -None Did you discuss the management of the patient with other professionals (professionals i.e. , PA, FISH HATCHERY SUPERINTENDENT, lab, RT, psych nurse, social contact worker, mirror maker, teacher, flight deck officer, rehabilitation caseworker)? Give summary @ -No Was smoking cessation discussed for >3mins.? @ -No Was critical care preformed (if so, how long)? @ -No Were there social determinants of health that impacted care today? How? (Homelessness, low income, unemployed, alcoholism, drug addiction, transportation, low edu. Level, literacy, decrease access to med. care, halfway, rehab)? @ -No Was there de-escalation of care discussed even if they declined (Discuss DNR or withdrawal of care, Hospice)? DNR status @ -No What co-morbidities impacted this encounter? (DM, HTN, Smoking, COPD, CAD, Cancer, CVA, ARF, Chemo, Hep., AIDS, mental health diagnosis, sleep apnea, morbid obesity)? @ -None Was patient admitted / discharged? Hospital course, mention meds given and route, prescriptions, significant lab abnormalities, going to OR and other pertinent info. @ -Patient presents with slip and fall with no injury. Patient did have some palpitations that have resolved. History of A-fib. Evaluation in the emergency department is unremarkable. Discussion with patient and family regarding further evaluation and patient does not want this and would like to be discharged. Undiagnosed new problem with uncertain prognosis? @ -No Drug Therapy requiring intensive monitoring for toxicity (Heparin, Nitro, Insulin, Cardizem)? @ -No Were any procedures done? @ -No Diagnosis/symptom? @ -Fall, palpitation Acute, or Chronic, or Acute on Chronic? @ -Acute, acute Uncomplicated (without systemic symptoms) or Complicated (systemic symptoms)? @ -Default Side effects of treatment? @ -No Exacerbation, Progression, or Severe Exacerbation? @ -No Poses a threat to life or bodily function? How? (Chest pain, [place], [place], pneumonia, PE, COPD, DKA, ARF, appy, cholecystitis, CVA, Diverticulitis, Homicidal, Suicidal, threat to staff... and all critical care pts) @ -No Disposition Clinical Impression: Palpitations, Fall Disposition: HOME SELF-CARE Condition: Stable Instructions (If sedation given, give patient instructions): Dizziness (ED), Heart Palpitations (ED) Additional Instructions: Please do follow-up with your primary care physician in the next couple of days for recheck. Return for increased heart rate, palpitations or skipping, chest pain or shortness of breath, passing out, concerns regarding injury, worsening symptoms or any other concerns. Is patient prescribed a controlled substance at d/c from ED?: No Referrals: Ko Matthews MD [Primary Care Provider] - 1-2 days Time of Disposition: 17:30
[2024-10-26 18:08] VITALS: BP 143/69; PULSE 62; RESP 16; TEMP 97.8
== END 2024-10-26 18:03 | disposition home or self-care (01) ==
LOC: EC 16:04
DX: R00.2 Palpitations (principal); I44.7 Left bundle-branch block, unspecified; Z88.2 Allergy status to sulfonamides; Z88.5 Allergy status to narcotic agent; Z88.6 Allergy status to analgesic agent; Z88.0 Allergy status to penicillin; Z88.1 Allergy status to other antibiotic agents; Z87.891 Personal history of nicotine dependence; W19.XXXA Unspecified fall, initial encounter
CPT/HCPCS: 93005; 99285